=== PATIENT | female | born 1945 | race Caucasian/White ===

== ENCOUNTER → 2023-06-01 09:53 | Outpatient (REF) | payer MEDICARE, OTHER, SELFPAY | LOC: RAD 09:53 | PROVIDERS: ATTENDING PHYSICIAN Internal Medicine | DX: R10.9 Unspecified abdominal pain (principal) | CPT/HCPCS: 76700 ==

== ENCOUNTER → 2023-08-28 13:14 | Outpatient (REF) | payer MEDICARE, OTHER, SELFPAY | LOC: WDC 13:14 | PROVIDERS: ATTENDING PHYSICIAN Internal Medicine | DX: Z12.31 Encounter for screening mammogram for malignant neoplasm of breast (principal) | CPT/HCPCS: 77063; 77067 ==

== ENCOUNTER 2024-01-23 21:19 | Inpatient (IN) | payer MEDICARE, OTHER, SELFPAY ==
[2024-01-23 16:08] VITALS: BMI 37.8
--- NOTE | 2024-01-23 16:34 | ED.GENMED ---
History of Present Illness
General
Chief Complaint: Fall
Source: patient and family
Exam Limitations: none
Time Seen by Provider: 01/23/24 16:08
Nursing documentation reviewed up to this point in time: agreed with
History of Present Illness
History of Present Illness:
Patient is an 78-year-old female who presents to the ER for evaluation via EMS. Patient lives alone and slipped and fell at 3 AM while going to the bathroom. She reports she landed on her knees but was unable to get herself up and has been on the
floor since. Her daughter went to check on her and she was not answering the door and they called 911. Patient reports she has had knee pain since falling also 2 weeks ago and now she complains of worsening left knee pain. She has not eaten or
drank since she has been on the floor.
She reports she slipped and denies any feeling of lightheadedness chest pain or dizziness prior to fall. She denies hitting her head
Pt c/o of chills on exam on arrival.
Daughter present reports she was unable to get patient off the floor she was very weak.
Past History
Past History
ED Past Medical History: HTN, NIDDM and Other (Chronic back pain)
ED Past Surgical History: None
Social History
Tobacco: Non-smoker
Alcohol: None
Drug: None
Living: alone
Review of Systems
Review of Systems
Allergies reviewed?: Yes
Other source history: family
All Other Systems: ROS reviewed and negative except as documented in HPI and ROS
Constitutional: Reports fatigue and chills
EENT: Reports no symptoms
Respiratory: Reports no symptoms; Denies cough
Cardiac: Reports no symptoms
ABD/GI: Reports no symptoms
: Reports no symptoms
Musculoskeletal: Reports other (left knee pain )
Skin: Reports no symptoms
Neurological: Reports no symptoms; Denies dizzy or headache
Psychiatric: Reports no symptoms
Phy Exam
General Physical Exam
General Presentation: no apparent distress
General age: appears stated age
General Skin: warm and dry
General Habitus: elderly
General Mental: alert
General Hydration: dry mucous membranes
Cardiovascular Exam
Cardiovascular Exam: tachycardia
Pulmonary Exam
Pulmonary Exam: lungs clear and no respiratory distress
Neurological Exam
Neurological Exam: alert and oriented x3
Musculoskeletal Exam
Musculoskeletal Exam: full ROM and other (no head injury + mild ecchymosis to left knee mildly swollen )
Skin Exam
Skin Exam: normal color and warm/dry
Psychiatric Exam
Psychiatric Exam: normal mood/affect
Course
Orders/Labs/Results
Orders:
Orders
01/23/24 16:06
EKG [Electrocardiogram (*1)] Urgent
Reason for Study: Other
Other Reason for Exam: fall
EKG- Treatment ONCE
01/23/24 16:09
CBC/With Diff [Complete Blood Count/With Diff] Urgent
01/23/24 16:35
Knee, Left 4 or More Views [CR Knee - Left 4 Or More View*] Urgent
Comment:
Reason For Exam: trauma
01/23/24 16:36
0.9% Sodium Chloride 1000 ml [Nss] 1,000 ml IV BOLUS
01/23/24 16:37
CT Head W/o Iv Contrast Urgent
Comment:
Reason For Exam: trauma
01/23/24 16:38
Lumbar Spine Complete, 4 View [CR Lumbar Spine Comp Min 4 Vw*] Urgent
Comment:
Reason For Exam: trauma
01/23/24 16:48
COVID-19 Antigen Urgent
Source: Nasal Swab
Comprehensive Metabolic Panel Urgent
Creatine Phosphokinase Urgent
UA Reflex to Culture [Urinalysis Reflex To Culture] Urgent
Date Specimen was Collected: 01/23/24
Time Specimen was Collected: 16:47
Urine Microscopic Reflex Cult Urgent
Influenza A+B Rapid Molecular Urgent
JOSEFINA Source: Nasal Swab
Specimen Description:
01/23/24 17:56
Acetaminophen [Tylenol] 650 mg PO NOW STA
01/23/24 18:05
Chest [CR Chest - 2 Views ] Urgent
Comment:
Reason For Exam: fever
01/23/24 19:37
Azithromycin 500 mg/250 ml [Zithromax Infusion] 500 mg in 250 ml IV NOW
01/23/24 19:38
CefTRIAXone [Rocephin] 1,000 mg IV NOW STA
Abnormal Lab Results
01/23/24 01/23/24
16:09 16:48
Abs Immat Gran (auto) 0.1 H 10^3/uL
(0-0.05)
Absolute Neuts (auto) 8.0 H 10^3/uL
(1.4-6.5)
Absolute Lymphs (auto) 0.6 L 10^3/uL
(1.2-3.4)
Absolute Monos (auto) 1.0 H 10^3/uL
(0.1-0.6)
Neutrophils % 83.2 H %
(42.2-75.2)
Lymphocytes % 5.7 L %
(20.5-51.1)
Monocytes % 10.3 H %
(1.7-9.3)
Carbon Dioxide 21 L mmol/L
(22-30)
BUN 34 H mg/dl
(7-17)
Glucose 161 H mg/dl
(70-99)
AST 51 H U/L
(14-36)
Creatine Kinase 590 H U/L
(30-135)
Urine Ketones 2+ A
(Negative)
Urine Bilirubin 1+ A
(Negative)
Urine Bacteria (Reflex) Few A
(Negative)
Urine Albumin (Reflex) 1+ A
(Neg - Trace)
01/23/24 16:09
01/23/24 16:48
Vital Signs
Initial and Last Documented VS:
Initial Vital Signs
Temp Pulse Resp Pulse Ox
99.0 F 113 15 94
01/23/24 16:08 01/23/24 16:08 01/23/24 16:08 01/23/24 16:08
Last Documented Vital Signs
Temp Pulse Resp BP Pulse Ox
101.8 F H 112 24 157/84 90
01/23/24 17:55 01/23/24 19:15 01/23/24 19:15 01/23/24 19:05 01/23/24 19:15
Sourcing Consultant consulted with Physician
Sourcing Consultant consulted with physician?: Yes
Name of Physician Consulted: Laine
MDM/Problems Addressed
Differential Diagnosis Includes:
Not limited mechanical fall dehydration rhabdomyolysis infection knee contusion versus fracture lumbar contusion versus fracture
MDM/Problems Addressed:
78-year-old female presented to the ER for evaluation of fall. Patient describes mechanical fall at 3 AM however has been on the floor since. Daughter reports patient was too weak to get up on her own and EMS was called. Patient denies hitting
her head however CAT scan was done and negative for injury. Patient is not on blood thinners. Patient does complain of feeling fatigued. Patient's main complaint on arrival was feeling very cold. She was found to have a temperature of 101.8 on
arrival. Patient denies any recent URI symptoms or UTI symptoms. Her white count is normal. She is dehydrated on exam clinically and does have an elevated BUN of 34 with a normal creatinine. Patient CPK was found to be 590. Urine does not
appear infected. Chest x-ray questionable for pneumonia lll. Case reviewed with ED physician with weakness elevated CPK dehydration fever questionable pneumonia will admit
Chronic conditions affecting care:
htn, iddm
*Radiology
Radiology exam reviewed: radiology read reviewed
*Pulse Oximetry
Patient hypoxic: no
*EKG
Interpreted by ED Provider?: Yes
Heart Rate: 107
Rate: tachycardiac
Ischemia: non-specific ST changes
*Critical Care Note
Total Time (30-74mins, 75-104mins- exclusive of procedures): Not Applicable
ED Attending Note
-
Portions of this chart may have been created with voice recognition software.� Occasional wrong word or��sound alike� substitutions may have occurred due to the inherent limitations of voice recognition software.
Discharge Plan
Departure
Patient Disposition: Admit
Date of Disposition: 01/23/24
Time of Disposition: 19:37
Admit to: Telemetry
Admit to doctor: hospitalist
Presentation/result/management discussed w/ accepting MD/DO: Hospitalist
Patient with high blood pressure during this ER visit?: Yes
Condition: Fair
Discharge Problem:
Acute dehydration, Fall, Fever, Pneumonia
Prescriptions:
No Action
felodipine 5 mg Tablet Extended Release 24 Hr
10 mg PO DAILY
rosuvastatin [Crestor] 10 mg Tablet
10 mg PO HS
Ozempic 1 mg/dose (2 mg/1.5 mL) Pen Injector
1 mg SC QWEEK
Rx Instructions:
sundays
metformin 500 mg tablet
1,000 mg PO BID
valsartan 160 mg tablet
320 mg PO DAILY
carvedilol 6.25 mg Tablet
6.25 mg PO BID Qty: 90 0RF
Insulin Glargine Lantus [Lantus] 33 UNITS
Subcutaneous Insulin Syringe [Syringe-Insulin] 0 UNIT
As Directed mls/hr SC DAILY
Ordered By: Remi Newell MD
Last Taken: Unknown
pantoprazole [Protonix] 20 mg tablet,delayed release (DR/EC)
20 mg PO DAILY Qty: 30 0RF
tramadol 50 mg tablet
25 mg PO Q6HPRN PRN (Reason: MOD PAIN) Qty: 0 0RF
Patient Comments:
Last filled 03/03/22 #28 x7day supply
Referrals:
Britany Foster MD [Family Provider] -
Interventions
Interventions:
*Risk Screen - Suicide Last Done: 01/23/24 16:08
*General Assessment Last Done: 01/23/24 16:08
*Neglect/Abuse Screening Last Done: 01/23/24 16:08
ED- Fall Risk Assessment Last Done: 01/23/24 16:08
*ED COVID-19 Vaccine History Last Done: 01/23/24 16:08
ED-Musculoskeletal Assessment Last Done: 01/23/24 16:08
ED- Neurological Assessment Last Done: 01/23/24 16:08
ED-Skin Assessment Last Done: 01/23/24 16:08
Discharge Date and Time
Print Language: DANISH
[2024-01-23 16:35] LABS: % Basophils 0.2 % (0-2); % Eosinophils 0.1 % (0-6); % Immature Granulocytes 0.5 % (0-0.5); % Lymphocytes 5.7 % (20.5-51.1); % Monocytes 10.3 % (1.7-9.3); % Neutrophils 83.2 % (42.2-75.2); Absolute Immature Granulocytes 0.1 10^3/uL (0-0.05); Absolute Lymphocytes 0.6 10^3/uL (1.2-3.4); Hemoglobin 14.4 g/dL (12.0-16.0); Mean Corpuscular Hgb 30.9 pg (27.0-31.0); Mean Corpuscular Volume 85.8 fL (81.0-99.0); Mean Platelet Volume 9.5 fL (7.4-10.4); Nucleated Red Blood Cells % 0 %; Platelet Count 299 10^3/uL (130-400); Red Blood Cell Count 4.66 10^6/uL (4.20-5.40); Red Cell Dist. Width 14.2 % (11.5-14.5); White Blood Cell Count 9.6 10^3/uL (4.8-10.8)
[2024-01-23] MEDS: NSS 1000 IV (16:47)
[2024-01-23 17:00] LABS: Urine Albumin 1+ (Neg - Trace); Urine Bilirubin 1+ (Negative); Urine Character Clear (Clear); Urine Color Yellow; Urine Glucose Negative (Negative); Urine Ketone 2+ (Negative); Urine Leukocyte Negative (Negative); Urine Nitrite Negative (Negative); Urine Occult Blood Negative (Negative); Urine Specific Gravity 1.025 (<1.030); Urine Urobilinogen Negative (Neg - 1+)
[2024-01-23 17:10] LABS: Urine Squamous Cell 16-20 /LPF (Few)
[2024-01-23 17:11] LABS: Urine Mucus Moderate; Urine Red Blood Cell 0-2 /HPF (0-2)
[2024-01-23 17:12] LABS: Urine Bacteria Few (Negative); Urine White Cell 0-2 /HPF (0-5)
[2024-01-23 17:19] LABS: ALT (SGPT) 35 U/L (0-35); AST (SGOT) 51 U/L (14-36); Albumin 4.4 g/dl (3.5-5.0); Alkaline Phosphatase 78 U/L (38-126); Blood Urea Nitrogen 34 mg/dl (7-17); Calcium 10.2 mg/dl (8.4-10.2); Carbon Dioxide 21 mmol/L (22-30); Chloride 102 mmol/L (98-107); Creatine Phosphokinase 590 U/L (30-135); Estimated Creatinine Clearance 53 ml/min; Glucose 161 mg/dl (70-99); Potassium 4.6 mmol/L (3.5-5.1); Sodium 138 mmol/L (135-145); Total Bilirubin 1.1 mg/dl (0.2-1.3); eGFR 56.95
[2024-01-23 17:30] LABS: COVID-19 Antigen Negative (Negative)
[2024-01-23] MEDS: TYLENOL 650 MG PO (18:03)
[2024-01-23 19:05] VITALS: BP 157/84
--- NOTE | 2024-01-23 19:45 | HPS.HSE ---
Family Physician
-
Family Physician: Britany Foster
Chief Complaint
-
Fall
History of Present Illness
Patient is a 78-year-old female with past medical history significant for hypertension, type 2 diabetes who came to [place] [facility] for evaluation s/p a fall around 0300 this morning. Patient reports that she fell on her knees when going to the
bathroom and was able to get herself back up. Her daughter stopped to check on her and when patient did not answer she called 911. Patient states she had a fall 2 weeks ago and her knees have been bothersome since then. Patient denies hitting her
head, fever, chills, shortness of breath, chest pain, cough, nausea, vomiting, constipation, diarrhea and any urinary symptoms. She did state that she had urinary symptoms approximately a week ago and primary care ordered Amoxicillin for her, she
has not finished the antibotic at home yet.
Medical History
Past Medical History
Past Medical History: Reports Other
Additional Past Medical History:
Hypertension
Diabetes
hyperlipidemia
GERD
Past Surgical History: Reports Other
Additional Past Surgical History:
D&C
Social History
Tobacco: Non-smoker
Alcohol: None
Drug: None
Personal: Single
Living: Alone
Employment: Retired
Family History
Family History: Not pertinent
Allergies / Home Medications
Allergies reflects when Allergies were last updated in [facility].
Home Medications with original date entered in [facility]
Allergy/Medication List:
Allergies
Allergy/AdvReac Type Severity Reaction Status Date / Time
No Known Allergies Allergy Verified 03/24/22 07:44
Home Medications
rosuvastatin 10 mg tablet (Crestor) 10 mg PO HS High cholesterol 03/24/22
metformin 500 mg tablet 1,000 mg PO BID Diabetes 03/26/22
valsartan 160 mg tablet 320 mg PO DAILY Blood pressure 03/26/22
amoxicillin 500 mg-potassium clavulanate 125 mg tablet 1 tab PO Q12 01/23/24
felodipine 10 mg tablet,extended release 24 hr 10 mg PO DAILY 01/23/24
insulin glargine U-300 conc 300 unit/mL (3 mL) subcutaneous pen (Toujeo Max U-300 SoloStar) 0 unit SC .SLIDING SCALE DAILY 01/23/24
methotrexate sodium (PF) 25 mg/mL injection solution 25 mg IM SA 01/23/24
pantoprazole 40 mg tablet,delayed release 40 mg PO DAILY 01/23/24
semaglutide 2 mg/dose (8 mg/3 mL) subcutaneous pen injector (Ozempic) 2 mg SC ARNDT 01/23/24
Review of Systems
-
History Source: Patient
Constitutional: Reports Fever and Chills
EENT: Reports No Symptoms
Respiratory: Reports No Symptoms
Cardiac: Reports No Symptoms
Abdomen/GI: Reports No Symptoms
: Reports No Symptoms
Musculoskeletal: Reports Joint Pain (bilateral knee pain)
Skin: Reports No Symptoms
Neurological: Reports No Symptoms
Endocrine: Reports No Symptoms
Hematologic/Lymphatic: Reports No Symptoms
Psych: Reports No Symptoms
Physical Exam
Vital Signs
Vital Signs
Temp Pulse Resp BP Pulse Ox
101.8 F H 112 24 157/84 90
01/23/24 17:55 01/23/24 19:15 01/23/24 19:15 01/23/24 19:05 01/23/24 19:15
Physical Exam
General: Well Developed, Well Nourished, No Apparent Distress, Comfortable, Conversant, Fever and Chills
HEENT: NormoCephalic, Moist mucous membranes, Atraumatic, PERRLA, Nose Appears Normal and Ears Appear Normal
Respiratory: Clear
Cardiac: S1/S2 and Tachycardia; No Murmur, Rub or Gallop
Breast: Deferred by me
GI: Soft, Non Tender, Non Distended and Normal Bowel Sounds; No Organomegaly
Rectal: Deferred by Provider
Genito-urinary: Deferred by me
Musculoskeletal: No Clubbing, No Cyanosis and No Edema
Skin: Warm, Dry and IV/Catheter Site; No Rash
Neuro: Awake, Alert, AO x 3 and Nonfocal/grossly intact
Psych: Calm and Intact Judgment/Insight
Laboratory Results
-
01/23/24 16:09
01/23/24 16:48
Laboratory Results
Total Bilirubin 1.1 mg/dl (0.2-1.3) 01/23/24 16:48
AST 51 U/L (14-36) H 01/23/24 16:48
ALT 35 U/L (0-35) 01/23/24 16:48
Alkaline Phosphatase 78 U/L (38-126) 01/23/24 16:48
Data Reviewed
-
Diagnostic Radiology: Report Reviewed by me (CXR: Left basilar atelectasis and/or pneumonia. Lumbar:Moderate multilevel degenerative changes of the lumbar spine without evidence for acute fracture. Knee; No acute fracture or dislocation. Moderate
tricompartmental osteoarthritis. Soft tissues are grossly unremarkable. No significant joint effus)
CT Scan: Report Reviewed by me (Head: No acute intracranial abnormality noted.)
Lab Data: Labs Reviewed by me (CK 590)
Impression/Plan
-
IMPRESSION/PLAN:
#Sepsis
#Pneumonia
- Admit to M/S
- Procal pending
- IV Azithromycin, ceftriaxone
- IVF NSS 60cc/hr
#Diabetes
- hold metformin
- hold Ozempic
- Accucheck AC & HS with SSI
#Hyperlipidemia
- continue rosuvastatin
#Hypertension
- continue valsartan & felodipine
#GERD
- continue pantoprazole
Full Code
DVT Px: Sq Lovenox
[2024-01-23] MEDS: ROCEPHIN 1000 MG IV (19:57)
[2024-01-23 20:00] VITALS: BP 136/79
[2024-01-23] MEDS: ZITHROMAX INFUSION 250 IV (20:04)
--- NOTE | 2024-01-23 20:07 | W.PN.UPDATE ---
Update Note
Progress Note Update
This note serves as an addendum to the H&P by milieu counselor KAMI Yecenia Diaz
HPI
78F from Home Obese HX NIDDM, HTN, NIDDM , , chronic back pain Bi[facility] EMS seen at ER:
- report Fall around 3 am and has been on the floor due to too weak to get up
- denied hitting head: NEG HCT
- Fever 101.8 with chills on arriaval: NEG Covid. NEG Flu A& B
PHX: as above
Reviewed VS: T 101.8 RR 24 HR 112 BP 157/84
PE
Gen: Class II obesity ( BMI 38 ) Not toxic looking
HEENT: anicteric
Neck: supple, no JVD
Lungs: symmetric AE. No wheeze. No rales
Cor: RRR S1 S2
Abdomen: soft NT NG NRT
ACID EXTRACTOR: AAO3. NFND
MS: No edema
Psych:Normal mood and affect
Data
WCC 9.6
CO2 21
BUN 34
Cr 1.0
eGFR 56
AST 51 CPK 590
NEG Covid
NEG UA
CXR: Left basilar atelectasis and/or pneumonia.
Lx spine XR: Moderate multilevel degenerative changes of the lumbar spine without evidence for acute fracture.
Knee XR:
No acute fracture or dislocation.
Moderate tricompartmental osteoarthritis.
Soft tissues are grossly unremarkable. No significant joint effusion
HCT: No acute intracranial abnormality noted.
Last hospitalist admission: DATE OF ADMISSION: 03/25/2022 - DATE OF DISCHARGE: 03/29/2022
DDx : fall with right ankle sprain
ASSESSMENT & PLAN
Sepsis due to presumed Lt basilar PNA
Fall due to weakness with general debility due to sepsis vs early TME
- No traumatic injury and Fx
- NEG HCT
- check PCT
- IV NS 60/H
- Agree with IV CFTZ and Azithromycin
- O2 PRN to keep POx > 94
- PT/OT
HX chronic back pain
NEG XR for acute Fxs
- cont tramadol
- PT/OT
Essential HTN
- c/w Felodipine and Valsartan
DMT2
- Hold metformin
- Hold Ozempic while acute infection
- add ISS low
- ADA 2000 kacie
HLD
- c/w Crestor HS
Class II Obesity due to excess calorie consumption- BMI 37-38
DVT Px: LMWH
Full code
IP TLM
[2024-01-23 21:00] VITALS: BP 115/65
[2024-01-23 22:00] VITALS: BP 125/83
[2024-01-23 22:30] VITALS: BP 112/89
[2024-01-23 23:01] VITALS: BP 142/79
[2024-01-23 23:04] LABS: Procalcitonin 0.58 ng/ml (0.0-0.25)
[2024-01-23 23:33] LABS: Glucose - Point of Care 133 mg/dl (70-99)
[2024-01-24] VITALS (13 sets, daily range): BP systolic 104–140; BP diastolic 59–91; PULSE 103–122; O2SAT 90–92; BMI 39.9
[2024-01-24] MEDS: CRESTOR 10 MG PO ×2 (00:19→21:34)
[2024-01-24] MEDS: ULTRAM 25 MG PO (00:19)
[2024-01-24] MEDS: NSS 1000 IV ×2 (00:20→17:00)
[2024-01-24] MEDS: TYLENOL 650 MG PO ×2 (05:45→11:36)
[2024-01-24 06:26] LABS: ALT (SGPT) 31 U/L (0-35); AST (SGOT) 42 U/L (14-36); Albumin 3.5 g/dl (3.5-5.0); Alkaline Phosphatase 80 U/L (38-126); Blood Urea Nitrogen 30 mg/dl (7-17); Calcium 9.5 mg/dl (8.4-10.2); Carbon Dioxide 21 mmol/L (22-30); Chloride 105 mmol/L (98-107); Estimated Creatinine Clearance 67 ml/min; Glucose 162 mg/dl (70-99); Potassium 4.2 mmol/L (3.5-5.1); Sodium 138 mmol/L (135-145); Total Bilirubin 1.1 mg/dl (0.2-1.3); eGFR > 60.00
[2024-01-24 06:28] LABS: Hematocrit 36.5 % (37.0-47.0); Hemoglobin 12.9 g/dL (12.0-16.0); Mean Corp Hgb Conc. 35.3 g/dL (33.0-37.0); Mean Corpuscular Hgb 31.9 pg (27.0-31.0); Mean Corpuscular Volume 90.3 fL (81.0-99.0); Mean Platelet Volume 9.5 fL (7.4-10.4); Platelet Count 271 10^3/uL (130-400); Red Blood Cell Count 4.04 10^6/uL (4.20-5.40)
[2024-01-24] MEDS: DIOVAN 320 MG PO (08:02)
[2024-01-24] MEDS: PROTONIX 40 MG PO (08:02)
[2024-01-24] MEDS: PLENDIL EXTENDED RELEASE 10 MG PO (08:03)
[2024-01-24 08:53] LABS: Glycohemoglobin (HgbA1c) 7.3 % (4.0-5.6)
[2024-01-24 09:10] LABS: Glucose - Point of Care 133 mg/dl (70-99)
[2024-01-24] MEDS: NOVOLOG FLEXPEN-LOW RESISTANCE SC ×2 (09:10→13:27)
--- NOTE | 2024-01-24 13:01 | W.PN.HOSP.TC ---
Today's Communication/Plan
-
X-ray right knee
Blood cultures
Doppler ultrasound lower extremities
PT/OT
Hold further antibiotics
Assessment / Plan
Assessment / Plan
Gen-AAOx3, NAD, obese
HEENT-NC, AT, anicteric, clear oral mm
Neck-supple
CV-reg, no M, +S1/S2
Lungs-clear B/L
Abd-soft, NT, ND
Ext-no edema
Musculoskeletal-no cyanosis, clubbing, somewhat limited range of motion of both knees due to pain, limited range of motion of shoulders due to pain
Skin-warm and dry
Neuro-grossly non-focal
Psych-calm, cooperative
Sepsis -no obvious trigger. Clinically does not have pneumonia, no evidence of UTI. Suspect abnormal chest x-ray is atelectasis rather than pneumonia. Not hypoxic. No pulmonary symptoms, no urinary symptoms. Hold further antibiotics. Send
blood cultures. Unfortunately, already received antibiotics.
Patient was on Augmentin for 1 week prior to admission for UTI reportedly, although today she tells me she never had UTI symptoms. She believes the urinalysis was checked by the PCP for routine reasons.
Check Doppler ultrasound lower extremities, rule out DVT as we have no clear explanation for the fever.
Bilateral knee pain -baseline has osteoarthritis, rheumatoid arthritis. Is on chronic methotrexate. Knee pain worsened when she fell 2 weeks ago landing on both knees. Admission x-ray of the left knee was negative for fracture, will order right
knee x-rays.
Ambulatory dysfunction -mostly due to significant knee pain, arthritis, debility and deconditioning contributing. Continue PT/OT.
Mild traumatic rhabdomyolysis -CPK 590 on admission. Will recheck.
Rheumatoid arthritis -on weekly methotrexate.
DM2 without hyperglycemia -hemoglobin A1c 7.3%. Glucose 162 this morning. At home she is on metformin, semaglutide, glargine insulin.
Essential hypertension - controlled.
Hyperlipidemia - Crestor.
Obesity due to excess calories
Dispo -will need SNF on discharge when medically stable.
Daughter updated on the phone.
Anticipated Discharge: 24 - 48 hours
Subjective/Interval History
-
Date of Service: January 24, 2024
Patient seen and examined. Complaining of bilateral knee pain, trouble ambulating as a result. Denies cough or shortness of breath.
Objective Data
-
Labs:
Laboratory Results
01/24/24
06:00
WBC 8.0
Hgb 12.9
Hct 36.5 L
Plt Count 271
Sodium 138
Potassium 4.2
Chloride 105
Carbon Dioxide 21 L
BUN 30 H
Creatinine 0.8
Glucose 162 H
Calcium 9.5
Total Bilirubin 1.1
AST 42 H
ALT 31
Alkaline Phosphatase 80
Vital Signs:
Vital Signs
Temp Pulse Resp BP Pulse Ox
100.5 F H 88 12 104/59 92
01/24/24 05:40 01/24/24 12:45 01/24/24 12:45 01/24/24 12:00 01/24/24 12:45
Review of Systems
-
History Source: Patient
All other systems: Reviewed and negative
--- NOTE | 2024-01-24 13:04 | CM ---
Addendum entered by Coretta Aggarwal 01/24/24 13:19:
Edit to last note: Patient declining STR, even though she now has to utilize a walker and did not have to before.
Original Note:
CM reviewed chart. PT discussed recommendations with CM. CM introduced self and role. Patient lived alone in a 1 story house. She has 3 steps to enter into the home. She drives, she was independent, until her fall. She is retired. She denies any
+SDOHs. She has active PCP and pharmacy. She owns a walker, cane and wheelchair.
Patient confirmed what PT had shared with CM intially. She said that she does want to go to STR. CM explained that patient was admitted and PT would continue to work with her until she was medically cleared and d/c'd. CM explinaed patient may or may
not improved with PT while in the hospital.
ANTICIPATED DISCHARGE PLAN: HHC vs. STR., pending PT/OT's recommendations and when patient is medically clear.
[2024-01-24 13:28] LABS: Glucose - Point of Care 141 mg/dl (70-99)
[2024-01-24 14:59] LABS: TSH 1.44 uIU/ml (0.47-4.68)
[2024-01-24 16:32] LABS: Glucose - Point of Care 218 mg/dl (70-99)
[2024-01-24] MEDS: LOVENOX 40 MG SC (17:01)
[2024-01-24] MEDS: NOVOLOG FLEXPEN-LOW RESISTANCE 2 UNITS SC (17:01)
[2024-01-24 20:59] LABS: Glucose - Point of Care 144 mg/dl (70-99)
[2024-01-24] MEDS: DESENEX/MITRAZOL/ZEASORB 1 APPLIC TOPICAL (21:33)
[2024-01-24] MEDS: MOTRIN 400 MG PO (21:33)
[2024-01-25 03:41] VITALS: BP 132/78
[2024-01-25 07:40] VITALS: BP 123/78
[2024-01-25 07:50] LABS: ALT (SGPT) 25 U/L (0-35); AST (SGOT) 31 U/L (14-36); Albumin 3.2 g/dl (3.5-5.0); Alkaline Phosphatase 70 U/L (38-126); Blood Urea Nitrogen 30 mg/dl (7-17); Calcium 9.2 mg/dl (8.4-10.2); Carbon Dioxide 20 mmol/L (22-30); Chloride 105 mmol/L (98-107); Creatine Phosphokinase 184 U/L (30-135); Estimated Creatinine Clearance 69 ml/min; Glucose 125 mg/dl (70-99); Potassium 4.1 mmol/L (3.5-5.1); Sodium 137 mmol/L (135-145); Total Bilirubin 0.8 mg/dl (0.2-1.3); Total Protein 5.6 g/dl (6.3-8.2); eGFR > 60.00
[2024-01-25 08:29] LABS: Glucose - Point of Care 136 mg/dl (70-99)
[2024-01-25] MEDS: NOVOLOG FLEXPEN-LOW RESISTANCE SC ×2 (08:56→18:56)
[2024-01-25] MEDS: DIOVAN 320 MG PO (08:59)
[2024-01-25] MEDS: PROTONIX 40 MG PO (08:59)
[2024-01-25] MEDS: DESENEX/MITRAZOL/ZEASORB 1 APPLIC TOPICAL ×2 (08:59→21:06)
[2024-01-25] MEDS: PLENDIL EXTENDED RELEASE 10 MG PO (10:17)
--- NOTE | 2024-01-25 10:36 | W.PN.HOSP.TC ---
Addendum entered and electronically signed by Jules Stanton DO 01/25/24 16:17:
Patient complaining of right lateral hip pain, chills. No fever recorded by nursing.
I went back in the room to reexamine the patient. She is tender over the right lateral hip consistent with trochanteric bursitis. She says that she has had this pain on and off for the past year at least. No groin pain on exam making hip
arthritis or pathology unlikely.
She is having chills but somewhat better after ibuprofen. EKG reviewed, sinus tachycardia.
Will check CBC now, recheck procalcitonin.
Blood cultures that were drawn earlier are still pending.
Addendum entered and electronically signed by Jules Stanton DO 01/25/24 13:01:
SIRS - no obvious infection found so far.
Original Note:
Today's Communication/Plan
-
MRI of both knees
Assessment / Plan
Assessment / Plan
Gen-AAOx3, NAD, obese
HEENT-NC, AT, anicteric, clear oral mm
Neck-supple
CV-reg, no M, +S1/S2
Lungs-clear B/L
Abd-soft, NT, ND
Ext-no edema
Musculoskeletal-no cyanosis, clubbing, somewhat limited range of motion of both knees due to pain, limited range of motion of shoulders due to pain
Skin-warm and dry
Neuro-grossly non-focal
Psych-calm, cooperative
Sepsis -no obvious trigger. Clinically does not have pneumonia, no evidence of UTI. Suspect abnormal chest x-ray is atelectasis rather than pneumonia. Not hypoxic. No pulmonary symptoms, no urinary symptoms. Hold further antibiotics. Send
blood cultures. Unfortunately, already received antibiotics.
Patient was on Augmentin for 1 week prior to admission for UTI reportedly, although today she tells me she never had UTI symptoms. She believes the urinalysis was checked by the PCP for routine reasons.
Check Doppler ultrasound lower extremities, rule out DVT as we have no clear explanation for the fever.
Bilateral knee pain -baseline has osteoarthritis, rheumatoid arthritis. Is on chronic methotrexate. Knee pain worsened when she fell 2 weeks ago landing on both knees. Admission x-ray of the left knee was negative for fracture, will order right
knee x-rays.
Obtain MRI of both knees to rule out tibial plateau fracture versus other pathology explaining her significant pain.
Ambulatory dysfunction -mostly due to significant knee pain, arthritis, debility and deconditioning contributing. Continue PT/OT.
Mild traumatic rhabdomyolysis -CPK trending down.
Rheumatoid arthritis -on weekly methotrexate.
DM2 without hyperglycemia -hemoglobin A1c 7.3%. Glucose 125 this morning. At home she is on metformin, semaglutide, glargine insulin.
Essential hypertension - controlled.
Hyperlipidemia - Crestor.
Obesity due to excess calories
Dispo -will need SNF on discharge when medically stable.
Anticipated Discharge: Within 24 hours
Subjective/Interval History
-
Date of Service: January 25, 2024
Patient seen and examined. Still complaining of bilateral knee pain. Able to ambulate with walker.
Objective Data
-
Labs:
Laboratory Results
01/25/24
06:45
Sodium 137
Potassium 4.1
Chloride 105
Carbon Dioxide 20 L
BUN 30 H
Creatinine 0.8
Glucose 125 H
Calcium 9.2
Total Bilirubin 0.8
AST 31
ALT 25
Alkaline Phosphatase 70
Vital Signs:
Vital Signs
Temp Pulse Resp BP Pulse Ox
97.6 F 78 18 123/78 98
01/25/24 07:40 01/25/24 07:40 01/25/24 07:40 01/25/24 08:59 01/25/24 07:40
Review of Systems
-
History Source: Patient
All other systems: Reviewed and negative
[2024-01-25 11:45] VITALS: BP 132/69
[2024-01-25 12:01] LABS: Glucose - Point of Care 190 mg/dl (70-99)
--- NOTE | 2024-01-25 12:42 | PN.CDI ---
CDI
- -
CDI:
Physician Documentation Request
Admit Date: 01/23/24 21:19
Dear Doctor Romy,
Progress notes states 'sepsis - no obvious trigger, Clinically does not have pneumonia, no evidence of UTI.... hold further antibiotics'
Please clarify which most accurately describes the patient:
Sepsis
SIRS due to a non-infectious source
Other
Use of terms such as suspected, likely, concern for, or probable (associated with a specific diagnosis that is being evaluated, monitored, or treated as if it exists) are acceptable and can be coded in the inpatient setting, when documented at the
time of discharge.
Thank you,
Nereida Carias RN, BSN
CDI Specialist
tiger text
Please use your independent medical judgment in providing your response.
[2024-01-25] MEDS: NOVOLOG FLEXPEN-LOW RESISTANCE 1 UNITS SC (13:05)
--- NOTE | 2024-01-25 13:49 | CM ---
Addendum entered by Shira Tamayo RN 01/25/24 17:07:
[facility]
report [phone]
fax [phone]
Contact at [facility] Jasmine [phone]
Addendum entered by Shira Tamayo RN 01/25/24 16:00:
spoke with Jasmine at if pt afebrile tomorrow they can accept.
Spoke with reji Britton she is in agreement with pt going to [facility] tomorrow.
Please contact Jasmine ziegler at [phone] for report and fax number .
[facility]
Original Note:
PT OT evals recommend SNF.
Spoke with pt in room .
She agreed offered choice of SNF . She requested [facility].
Referral placed in care port.
Will follow up with call if no response.
PLAN To SNF after located
--- NOTE | 2024-01-25 14:42 | PTCARENOTE ---
contacting provider r/t complaints of severe right hip and right lateral neck pain. pt moaning and shaking in the bed. afebrile. pressures and HR stable. pt repoorts pain is 12/10 and requesting Motrin
[2024-01-25] MEDS: MOTRIN 800 MG PO (14:54)
[2024-01-25 15:25] VITALS: BP 118/54
[2024-01-25] MEDS: TORADOL 15 MG IV ×2 (15:45→22:33)
[2024-01-25] MEDS: PERCOCET 5/325 1 TABLET PO (16:11)
[2024-01-25 16:43] LABS: % Basophils 0.3 % (0-2); % Eosinophils 4.1 % (0-6); % Immature Granulocytes 0.3 % (0-0.5); % Lymphocytes 18.4 % (20.5-51.1); % Monocytes 8.3 % (1.7-9.3); % Neutrophils 68.6 % (42.2-75.2); Absolute Eosinophils 0.3 10^3/uL (0-0.7); Absolute Lymphocytes 1.1 10^3/uL (1.2-3.4); Absolute Monocytes 0.5 10^3/uL (0.1-0.6); Absolute Neutrophils 4.2 10^3/uL (1.4-6.5); Hematocrit 34.6 % (37.0-47.0); Hemoglobin 12.1 g/dL (12.0-16.0); Mean Corpuscular Hgb 30.3 pg (27.0-31.0); Mean Corpuscular Volume 86.5 fL (81.0-99.0); Mean Platelet Volume 9.1 fL (7.4-10.4); Nucleated Red Blood Cells % 0 %; Platelet Count 274 10^3/uL (130-400); Red Cell Dist. Width 13.6 % (11.5-14.5); White Blood Cell Count 6.1 10^3/uL (4.8-10.8)
[2024-01-25 17:51] LABS: Glucose - Point of Care 142 mg/dl (70-99)
[2024-01-25 19:20] VITALS: BP 144/73
[2024-01-25] MEDS: LOVENOX 40 MG SC (19:28)
[2024-01-25] MEDS: CRESTOR 10 MG PO (21:08)
[2024-01-25 22:36] LABS: Glucose - Point of Care 154 mg/dl (70-99)
[2024-01-25 23:34] VITALS: BP 140/70
[2024-01-26 03:30] VITALS: BP 138/74
[2024-01-26 07:16] LABS: % Basophils 0.8 % (0-2); % Eosinophils 5.3 % (0-6); % Immature Granulocytes 0.5 % (0-0.5); % Lymphocytes 20.9 % (20.5-51.1); % Monocytes 11.6 % (1.7-9.3); % Neutrophils 60.9 % (42.2-75.2); Absolute Basophils 0.1 10^3/uL (0-0.2); Absolute Eosinophils 0.4 10^3/uL (0-0.7); Absolute Lymphocytes 1.4 10^3/uL (1.2-3.4); Absolute Monocytes 0.8 10^3/uL (0.1-0.6); Hematocrit 33.2 % (37.0-47.0); Hemoglobin 11.5 g/dL (12.0-16.0); Mean Corp Hgb Conc. 34.6 g/dL (33.0-37.0); Mean Corpuscular Hgb 30.4 pg (27.0-31.0); Mean Corpuscular Volume 87.8 fL (81.0-99.0); Mean Platelet Volume 9.5 fL (7.4-10.4); Nucleated Red Blood Cells % 0 %; Platelet Count 275 10^3/uL (130-400); Red Blood Cell Count 3.78 10^6/uL (4.20-5.40); Red Cell Dist. Width 13.9 % (11.5-14.5); White Blood Cell Count 6.6 10^3/uL (4.8-10.8)
[2024-01-26 07:52] VITALS: BP 130/67
[2024-01-26 07:52] LABS: ALT (SGPT) 25 U/L (0-35); AST (SGOT) 31 U/L (14-36); Albumin 3.4 g/dl (3.5-5.0); Alkaline Phosphatase 71 U/L (38-126); Blood Urea Nitrogen 26 mg/dl (7-17); Calcium 9.5 mg/dl (8.4-10.2); Carbon Dioxide 21 mmol/L (22-30); Chloride 106 mmol/L (98-107); Estimated Creatinine Clearance 69 ml/min; Glucose 145 mg/dl (70-99); Potassium 4.2 mmol/L (3.5-5.1); Sodium 138 mmol/L (135-145); Total Bilirubin 0.6 mg/dl (0.2-1.3); Total Protein 5.9 g/dl (6.3-8.2); eGFR > 60.00
[2024-01-26 08:16] LABS: Glucose - Point of Care 147 mg/dl (70-99)
[2024-01-26] MEDS: NOVOLOG FLEXPEN-LOW RESISTANCE SC ×3 (09:18→17:06)
[2024-01-26] MEDS: PROTONIX 40 MG PO (10:04)
[2024-01-26] MEDS: PLENDIL EXTENDED RELEASE 10 MG PO (10:04)
[2024-01-26] MEDS: DESENEX/MITRAZOL/ZEASORB 1 APPLIC TOPICAL ×2 (10:05→21:21)
[2024-01-26 11:25] VITALS: BP 146/75
--- NOTE | 2024-01-26 11:32 | W.PN.HOSP.TC ---
Today's Communication/Plan
-
Ibuprofen [id number]
Await MRI of knees
Assessment / Plan
Assessment / Plan
Gen-AAOx3, NAD, obese
HEENT-NC, AT, anicteric, clear oral mm
Neck-supple
CV-reg, no M, +S1/S2
Lungs-clear B/L
Abd-soft, NT, ND
Ext-no edema
Musculoskeletal-no cyanosis, clubbing, somewhat limited range of motion of both knees due to pain, limited range of motion of shoulders due to pain, tender over right greater trochanter
Skin-warm and dry
Neuro-grossly non-focal
Psych-calm, cooperative
SIRS -no obvious trigger. Clinically does not have pneumonia, no evidence of UTI. Suspect abnormal chest x-ray is atelectasis rather than pneumonia. Not hypoxic. No pulmonary symptoms, no urinary symptoms. Hold further antibiotics. Blood
cultures negative so far.
Patient was on Augmentin for 1 week prior to admission for UTI reportedly, although today she tells me she never had UTI symptoms. She believes the urinalysis was checked by the PCP for routine reasons.
Lower extremity Doppler ultrasound negative for DVT.
Mild procalcitonin elevation noted but trending down. Has remained afebrile. WBC count normal.
Bilateral knee pain -baseline has osteoarthritis, rheumatoid arthritis. Is on chronic methotrexate. Knee pain worsened when she fell 2 weeks ago landing on both knees. Admission x-ray of the left knee was negative for fracture, will order right
knee x-rays.
Obtain MRI of both knees to rule out tibial plateau fracture versus other pathology explaining her significant pain.
Right greater trochanteric bursitis -suspect chronic. Will change NSAIDs to ibuprofen 800 mg 3 times daily [id number].
Ambulatory dysfunction -mostly due to significant knee pain, arthritis, debility and deconditioning contributing. Continue PT/OT.
Mild traumatic rhabdomyolysis -CPK trending down.
Rheumatoid arthritis -on weekly methotrexate.
DM2 without hyperglycemia -hemoglobin A1c 7.3%. Glucose 145 this morning. At home she is on metformin, semaglutide, glargine insulin.
Essential hypertension - controlled.
Hyperlipidemia - Crestor.
Obesity due to excess calories
Dispo -will need SNF on discharge when medically stable.
Anticipated Discharge: 24 - 48 hours
Subjective/Interval History
-
Date of Service: January 26, 2024
Patient seen and examined. Complaining of 8 out of 10 knee and right hip pain.
Objective Data
-
Labs:
Laboratory Results
01/26/24
05:58
WBC 6.6
Hgb 11.5 L
Hct 33.2 L
Plt Count 275
Sodium 138
Potassium 4.2
Chloride 106
Carbon Dioxide 21 L
BUN 26 H
Creatinine 0.8
Glucose 145 H
Calcium 9.5
Total Bilirubin 0.6
AST 31
ALT 25
Alkaline Phosphatase 71
Vital Signs:
Vital Signs
Temp Pulse Resp BP Pulse Ox
97.9 F 78 16 146/75 98
01/26/24 11:25 01/26/24 11:25 01/26/24 11:25 01/26/24 11:25 01/26/24 11:25
I&O
01/25/24 01/26/24 01/27/24
06:59 06:59 05:59
Intake Total 500 / 500
Balance 500 / 500
Review of Systems
-
History Source: Patient
All other systems: Reviewed and negative
[2024-01-26 11:46] LABS: Glucose - Point of Care 145 mg/dl (70-99)
[2024-01-26] MEDS: DIOVAN 320 MG PO (12:01)
[2024-01-26] MEDS: MOTRIN 800 MG PO ×3 (12:01→21:22)
[2024-01-26] MEDS: PERCOCET 5/325 1 TABLET PO (13:30)
[2024-01-26 15:57] VITALS: BP 144/66
[2024-01-26] MEDS: LOVENOX 40 MG SC (17:02)
[2024-01-26 17:07] LABS: Glucose - Point of Care 145 mg/dl (70-99)
[2024-01-26] MEDS: CRESTOR 10 MG PO (21:22)
[2024-01-26 21:37] LABS: Glucose - Point of Care 150 mg/dl (70-99)
[2024-01-26 23:40] VITALS: BP 143/48
[2024-01-27 07:40] VITALS: BP 139/80
[2024-01-27] MEDS: MOTRIN 800 MG PO (08:11)
[2024-01-27] MEDS: PROTONIX 40 MG PO (08:11)
[2024-01-27] MEDS: DIOVAN 320 MG PO (08:11)
[2024-01-27] MEDS: PLENDIL EXTENDED RELEASE 10 MG PO (08:12)
[2024-01-27] MEDS: PERCOCET 5/325 1 TABLET PO (08:12)
[2024-01-27] MEDS: NOVOLOG FLEXPEN-LOW RESISTANCE SC ×3 (08:19→17:23)
[2024-01-27] MEDS: DESENEX/MITRAZOL/ZEASORB 1 APPLIC TOPICAL ×2 (08:19→21:14)
[2024-01-27 08:24] LABS: Glucose - Point of Care 126 mg/dl (70-99)
[2024-01-27] MEDS: ATIVAN 0.5 MG PO (08:33)
--- NOTE | 2024-01-27 11:15 | W.PN.HOSP.TC ---
Addendum entered and electronically signed by Jules Stanton DO 01/27/24 12:48:
Left knee MRI without occult fracture, does show anterior cruciate ligament degeneration and age-indeterminate partial tear. Severe degenerative tear of the medial meniscus. Advanced arthritis. Bursitis noted.
Right knee MRI without occult fracture, does show medial meniscus tear, advanced arthritis, trace joint effusion.
Findings discussed with patient. Continue PT/OT and analgesics. Continue anti-inflammatory medications.
Plan will be to go to rehab.
Original Note:
Today's Communication/Plan
-
Stop ibuprofen
IV Toradol [id number]
Follow-up MRI report
Assessment / Plan
Assessment / Plan
Gen-AAOx3, NAD, obese
HEENT-NC, AT, anicteric, clear oral mm
Neck-supple
CV-reg, no M, +S1/S2
Lungs-clear B/L
Abd-soft, NT, ND
Ext-no edema
Musculoskeletal-no cyanosis, clubbing, somewhat limited range of motion of both knees due to pain, limited range of motion of shoulders due to pain, tender over right greater trochanter
Skin-warm and dry
Neuro-grossly non-focal
Psych-calm, cooperative
SIRS -no obvious trigger. Clinically does not have pneumonia, no evidence of UTI. Suspect abnormal chest x-ray is atelectasis rather than pneumonia. Not hypoxic. No pulmonary symptoms, no urinary symptoms. Hold further antibiotics. Blood
cultures negative so far.
Patient was on Augmentin for 1 week prior to admission for UTI reportedly, although today she tells me she never had UTI symptoms. She believes the urinalysis was checked by the PCP for routine reasons.
Lower extremity Doppler ultrasound negative for DVT.
Mild procalcitonin elevation noted but trending down. Has remained afebrile. WBC count normal.
Bilateral knee pain -baseline has osteoarthritis, rheumatoid arthritis. Is on chronic methotrexate. Knee pain worsened when she fell 2 weeks ago landing on both knees. Admission x-ray of the left knee was negative for fracture, will order right
knee x-rays.
MRI of both knees completed, report pending.
Right greater trochanteric pain syndrome - suspect acute on chronic. Will change NSAIDs to Toradol IV [id number]. She states ibuprofen 800 mg is not helping.
Ambulatory dysfunction -mostly due to significant knee pain, arthritis, debility and deconditioning contributing. Continue PT/OT.
Mild traumatic rhabdomyolysis -CPK trending down.
Rheumatoid arthritis -on weekly methotrexate.
DM2 without hyperglycemia -hemoglobin A1c 7.3%. Glucose 126 this morning. At home she is on metformin, semaglutide, glargine insulin.
Essential hypertension - controlled.
Hyperlipidemia - Crestor.
Obesity due to excess calories
Dispo -will need SNF on discharge when medically stable.
Updated daughter on the phone.
Anticipated Discharge: Within 24 hours
Subjective/Interval History
-
Date of Service: January 27, 2024
Patient seen and examined. Complaining of ongoing knee pain.
Objective Data
-
Vital Signs:
Vital Signs
Temp Pulse Resp BP Pulse Ox
97.7 F 76 17 139/80 96
01/27/24 07:40 01/27/24 07:40 01/27/24 07:40 01/27/24 07:40 01/27/24 07:40
I&O
01/26/24 01/27/24 01/28/24
07:59 06:59 06:59
Intake Total
Balance
Review of Systems
-
History Source: Patient
All other systems: Reviewed and negative
[2024-01-27 11:46] LABS: Glucose - Point of Care 121 mg/dl (70-99)
[2024-01-27] MEDS: TORADOL 15 MG IV ×3 (11:58→23:32)
[2024-01-27 15:45] VITALS: BP 111/62
[2024-01-27 17:17] LABS: Glucose - Point of Care 105 mg/dl (70-99)
[2024-01-27] MEDS: LOVENOX 40 MG SC (17:17)
[2024-01-27] MEDS: CRESTOR 10 MG PO (21:15)
[2024-01-27 22:02] LABS: Glucose - Point of Care 156 mg/dl (70-99)
[2024-01-27 23:58] VITALS: BP 112/46
[2024-01-28] MEDS: TORADOL 15 MG IV ×2 (06:06→12:03)
[2024-01-28 07:31] VITALS: BP 132/73
[2024-01-28] MEDS: PLENDIL EXTENDED RELEASE 10 MG PO (07:31)
[2024-01-28] MEDS: DIOVAN 320 MG PO (07:31)
[2024-01-28] MEDS: PROTONIX 40 MG PO (07:32)
[2024-01-28 07:43] LABS: Glucose - Point of Care 126 mg/dl (70-99)
[2024-01-28] MEDS: NOVOLOG FLEXPEN-LOW RESISTANCE SC (07:45)
[2024-01-28] MEDS: DESENEX/MITRAZOL/ZEASORB 1 APPLIC TOPICAL (07:51)
[2024-01-28 11:46] LABS: Glucose - Point of Care 158 mg/dl (70-99)
--- NOTE | 2024-01-28 11:47 | W.PN.HOSP.TC ---
Addendum entered and electronically signed by Blayne Delarosa MD 01/28/24 13:57:
Time of discharge 37 minutes
Original Note:
Today's Communication/Plan
-
Monitor vital signs
see plan
Pain control
Discharge pending placement, manager of case management aware
Assessment / Plan
Assessment / Plan
Gen-AAOx3, NAD, obese
HEENT-NC, AT, anicteric, clear oral mm
Neck-supple
CV-reg, no M, +S1/S2
Lungs-clear B/L
Abd-soft, NT, ND
Ext-no edema
Musculoskeletal-no cyanosis, clubbing, somewhat limited range of motion of both knees due to pain, limited range of motion of shoulders due to pain, tender over right greater trochanter
Skin-warm and dry
Neuro-grossly non-focal
Psych-calm, cooperative
SIRS -no obvious trigger. Clinically does not have pneumonia, no evidence of UTI. Suspect abnormal chest x-ray is atelectasis rather than pneumonia. Not hypoxic. No pulmonary symptoms, no urinary symptoms. Hold further antibiotics. Blood
cultures negative so far.
Patient was on Augmentin for 1 week prior to admission for UTI reportedly, although today she tells me she never had UTI symptoms. She believes the urinalysis was checked by the PCP for routine reasons.
Lower extremity Doppler ultrasound negative for DVT.
Mild procalcitonin elevation noted but trending down. Has remained afebrile. WBC count normal.
Bilateral knee pain -baseline has osteoarthritis, rheumatoid arthritis. Is on chronic methotrexate. Knee pain worsened when she fell 2 weeks ago landing on both knees. Admission x-ray of the left knee was negative for fracture, will order right
knee x-rays.
MRI of both knees completed, Left knee MRI without occult fracture, does show anterior cruciate ligament degeneration and age-indeterminate partial tear. Severe degenerative tear of the medial meniscus. Advanced arthritis. Bursitis noted.
Right greater trochanteric pain syndrome - suspect acute on chronic. Will change NSAIDs to Toradol IV [id number]. She states ibuprofen 800 mg is not helping.
Ambulatory dysfunction -mostly due to significant knee pain, arthritis, debility and deconditioning contributing. Continue PT/OT.
Mild traumatic rhabdomyolysis -CPK trending down.
Rheumatoid arthritis -on weekly methotrexate.
DM2 without hyperglycemia -hemoglobin A1c 7.3%. At home she is on metformin, semaglutide, glargine insulin.
Essential hypertension - controlled.
Hyperlipidemia - Crestor.
Obesity due to excess calories
Dispo -will need SNF on discharge when medically stable.
Anticipated Discharge: Today
Subjective/Interval History
-
Date of Service: January 28, 2024
Denies nausea
Objective Data
-
Vital Signs:
Vital Signs
Temp Pulse Resp BP Pulse Ox
97.9 F 80 18 132/73 98
01/28/24 07:31 01/28/24 07:31 01/28/24 07:31 01/28/24 07:31 01/28/24 07:31
I&O
01/27/24 01/28/24 01/29/24
06:59 06:59 06:59
Intake Total 1260 / 1260
Balance 1260 / 1260
[2024-01-28] MEDS: NOVOLOG FLEXPEN-LOW RESISTANCE 1 UNITS SC (12:00)
[2024-01-28] MEDS: PERCOCET 5/325 1 TABLET PO (12:12)
[2024-01-28 12:35] VITALS: BP 131/66; PULSE 96; O2SAT 95
[2024-01-28 13:10] VITALS: BP 131/66; PULSE 96; O2SAT 95
--- NOTE | 2024-01-28 13:57 | W.DCSUMMARY ---
Discharge Summary
Discharge Data
Date of Admission: 01/23/24
Date of Discharge: 01/28/24
-
Pending Results: No
Hospital Course
78-year-old female with past medical history of rheumatoid arthritis, diabetes mellitus, essential hypertension, hyperlipidemia, obesity, osteoarthritis came to the hospital with SIRS. Patient was monitored off antibiotics and her cultures continue
to be negative so she was not treated with any antibiotics. She also had bilateral knee pain for which she had an MRI which did not show any occult fracture however did show anterior cruciate ligament degeneration and age-indeterminate partial tear
along with severe degenerative tear of the medial meniscus. She was instructed to follow-up with orthopedics outpatient. She was also seen by physical therapy who recommended SNF. Once her symptoms continue to improve, she was then discharged to
SNF with instructions to follow-up with all her physicians outpatient.
Discharge Plan
-
Patient Disposition: Prison/SNF
Discharge Diagnosis/Procedures: Ambulatory dysfunction, severe osteoarthritis
Condition: Fair
Diet: Diabetic, Carb Controlled
Activity: With assistance and As tolerated
Driving Restrictions: No driving
Bathing Restrictions: None
Activity Restrictions/Additional Instructions:
Please follow-up with orthopedics outpatient
Referrals:
Britany Foster MD [Family Provider] - in less than 1 week
Prescriptions:
New
oxycodone-acetaminophen 5-325 mg Tablet
1 tab PO Q4HPRN PRN (Reason: severe pain) Qty: 10 0RF
Continued
rosuvastatin [Crestor] 10 mg Tablet
10 mg PO HS
metformin 500 mg tablet
1,000 mg PO BID
valsartan 160 mg tablet
320 mg PO DAILY
pantoprazole 40 mg tablet,delayed release (DR/EC)
40 mg PO DAILY
felodipine 10 mg tablet extended release 24 hr
10 mg PO DAILY
methotrexate sodium (PF) 25 mg/mL solution
25 mg IM SA
Ozempic 2 mg/dose (8 mg/3 mL) pen injector
2 mg SC ARNDT
Discontinued
amoxicillin-pot clavulanate 500-125 mg tablet
1 tab PO Q12
insulin glargine U-300 conc [Toujeo Max U-300 SoloStar] 300 unit/mL (3 mL) insulin pen
0 unit SC .SLIDING SCALE DAILY
Discharge Orders:
Discharge Patient (As Directed); Ordered 01/28/24
Ordered By: Blayne Delarosa
Discharge Date and Time
Discharge Date/Time: 01/28/24 16:59
Print Language: SLOVAK
--- NOTE | 2024-01-28 14:12 | CM ---
MD entered order for discharge.
Spoke with Jasmine at [facility] [phone]. She said she could accept pt today . Negative covid test and update clinical sent in care port as requested.
Updated PT OT done
Spoke with pt she said she felt she was ready for dc.
Asked pt about transport. She said family could not transport.Offered [employer] van . Transport form completed. Spoke with acute care Wilfrido pandey is $185.00. Pt provided number to acute care transport.
Pt spoke with her dgt about dc.
IMM reviewed agreed with dc. IMM signed on chart.
[facility] [phone]
fax [phone]
PLAN To [facility] via [employer] van
[2024-01-28 15:35] VITALS: BP 112/71
== END 2024-01-28 16:59 | DRG 565 ==
LOC: 3 WEST ACU 21:19
PROVIDERS: Hospitalist; Nurse Practitioner; Nurse Practitioner Family; ADMITTING PHYSICIAN Internal Medicine; ATTENDING PHYSICIAN Internal Medicine; EMERGENCY PHYSICIAN Emergency Medicine; FAMILY PHYSICIAN Internal Medicine
DX: T79.6XXA Traumatic ischemia of muscle, initial encounter (principal); J98.11 Atelectasis; R65.10 Systemic inflammatory response syndrome (SIRS) of non-infectious origin without acute organ dysfunction; E11.9 Type 2 diabetes mellitus without complications; Z68.37 Body mass index [BMI] 37.0-37.9, adult; I10 Essential (primary) hypertension; M06.9 Rheumatoid arthritis, unspecified; E66.812 Obesity, class 2; E78.5 Hyperlipidemia, unspecified; E86.0 Dehydration; K21.9 Gastro-esophageal reflux disease without esophagitis; G89.29 Other chronic pain; M54.9 Dorsalgia, unspecified; M25.561 Pain in right knee; M25.461 Effusion, right knee; M25.562 Pain in left knee; M70.52 Other bursitis of knee, left knee; M17.0 Bilateral primary osteoarthritis of knee; S83.242A Other tear of medial meniscus, current injury, left knee, initial encounter; S83.241A Other tear of medial meniscus, current injury, right knee, initial encounter; W01.0XXA Fall on same level from slipping, tripping and stumbling without subsequent striking against object, initial encounter; Y92.009 Unspecified place in unspecified non-institutional (private) residence as the place of occurrence of the external cause; R53.81 Other malaise; Z79.84 Long term (current) use of oral hypoglycemic drugs; Z79.85 Long-term (current) use of injectable non-insulin antidiabetic drugs; Z79.899 Other long term (current) drug therapy
CPT/HCPCS: 70450; 71046; 72110; 73564; 73721; 80053; 81003; 81015; 82550; 82962; 83036; 84145; 84443; 85025; 85027; 87040; 87502; 87811; 93005; 93970; 96374; 96375; 97116; 97167; 97535; 99285

== ENCOUNTER → 2024-08-28 13:14 | Outpatient (REF) | payer MEDICARE, OTHER, SELFPAY | LOC: WDC 13:14 | PROVIDERS: ATTENDING PHYSICIAN Internal Medicine | DX: Z12.31 Encounter for screening mammogram for malignant neoplasm of breast (principal) | CPT/HCPCS: 77063; 77067 ==

== ENCOUNTER 2024-12-29 09:19 | Inpatient (IN) | payer MEDICARE, OTHER, SELFPAY ==
[2024-12-28 16:21] VITALS: BP 154/101
[2024-12-28 16:48] LABS: Hematocrit 44.2 % (37.0-47.0); Hemoglobin 15.0 g/dL (12.0-16.0); Mean Corp Hgb Conc. 33.9 g/dL (33.0-37.0); Mean Corpuscular Volume 85.5 fL (81.0-99.0); Nucleated Red Blood Cells % 0 %; Platelet Count 306 10^3/uL (130-400); Red Cell Dist. Width 12.3 % (11.5-14.5)
[2024-12-28 17:03] LABS: COVID-19 Antigen Negative (Negative)
[2024-12-28 17:24] LABS: ALT (SGPT) 17 U/L (0-35); AST (SGOT) 26 U/L (14-36); Albumin 4.3 g/dl (3.5-5.0); Alkaline Phosphatase 112 U/L (38-126); Blood Urea Nitrogen 20 mg/dl (7-17); Calcium 10.1 mg/dl (8.4-10.2); Carbon Dioxide 23 mmol/L (22-30); Chloride 102 mmol/L (98-107); Glucose 176 mg/dl (70-99); Potassium 4.2 mmol/L (3.5-5.1); Sodium 134 mmol/L (135-145); Total Protein 7.4 g/dl (6.3-8.2); eGFR 56.60
--- NOTE | 2024-12-28 17:39 | ED.GENMED ---
History of Present Illness
<Ramon Bullock PA-C - Last Filed: 12/28/24 23:01>
General
Chief Complaint: Fever
Time Seen by Provider: 12/28/24 17:07
History of Present Illness
History of Present Illness:
79-year-old female with history of insulin-dependent diabetes, hypertension, and hyperlipidemia as well as rheumatoid arthritis presents to the emergency department for evaluation of fever for the past 3 to 4 days as well as mild productive cough.
Denies shortness of breath or chest pain. She was reportedly started on Augmentin on the first of this month for the same symptoms. Did not take any acetaminophen today. Reports weakness and was unable to support her own weight while in the
bathroom today, did not fall or feeling her head. Pain, dysuria, hematuria, or leg swelling.
Past History
<Ramon Bullock PA-C - Last Filed: 12/28/24 23:01>
Past History
ED Past Medical History: HTN, NIDDM and Other (Chronic back pain)
ED Past Surgical History: None
Social History
Tobacco: Non-smoker
Alcohol: None
Drug: None
Living: alone
Review of Systems
<Ramon Bullock PA-C - Last Filed: 12/28/24 23:01>
Review of Systems
Allergies reviewed?: Yes
All Other Systems: ROS reviewed and negative except as documented in HPI and ROS
Phy Exam
<Ramon Bullock PA-C - Last Filed: 12/28/24 23:01>
Physical Exam
Physical Exam:
GEN: Appears ill, generally tremulous
HEENT: Oral mucosa moist, no scleral icterus
Cardiac: Tachycardic, regular
Lungs: tachypneic, no respiratory distress, lungs clear
MSK: No gross deformity or injuries, no lower extremity edema
Skin: Good color, no pallor or jaundice, no rashes
Neuro: AO x3, moves all extremities freely
Psych: Calm, cooperative
Course
<Ramon Bullock PA-C - Last Filed: 12/28/24 23:01>
Orders/Labs/Results
Orders:
Orders
12/28/24 Dinner
1800 calorie (15 carb) Diabetic
At Your Request: Limited Participation
Does patient need a safe tray?: No
12/28/24 16:36
COVID-19 Antigen Urgent
Source: Nasal Swab
Complete Blood Count/With Diff Urgent
Comprehensive Metabolic Panel Urgent
Lactic Acid Urgent
Influenza A+B Rapid Molecular Urgent
JOSEFINA Source: Nasal Swab
Specimen Description:
12/28/24 17:24
0.9% Sodium Chloride 1000 ml [Nss] 1,000 ml IV BOLUS
Acetaminophen [Tylenol] 1,000 mg PO NOW STA
CR Chest - 2 Views Urgent
Comment:
Reason For Exam: fever/cough
12/28/24 18:31
Electrocardiogram (*1) Urgent
Reason for Study: Bradycardia / Tachycardia
EKG- Treatment ONCE
12/28/24 19:26
Urinalysis Reflex To Culture Urgent
Date Specimen was Collected: 12/28/24
Time Specimen was Collected: 17:34
Urine Microscopic Reflex Cult Urgent
Blood Culture Q30M
JOSEFINA Source: Blood/Venous
Specimen Description:
Blood Culture Q30M
JOSEFINA Source: Blood/Venous
Specimen Description:
Urine Culture Urgent
JOSEFINA Source: U
Specimen Description:
Date Specimen was Collected: 12/28/24
Time Specimen was Collected: 17:34
12/28/24 19:27
0.9% Sodium Chloride 1000 ml [Nss] 1,000 ml IV BOLUS
12/28/24 20:16
CT Chest/abd/pel W Iv Cont Urgent
Comment:
Reason For Exam: sepsis uncertain source
12/28/24 21:09
CefTRIAXone [Rocephin] 1,000 mg IV NOW STA
12/28/24 21:[address] Non Medication Order As Directed
Physician Order: please obtain a rectal temp
Above order entered?: Yes
12/28/24 22:04
Admit/Transfer Patient As Directed
Co-Sign Provider:
Level of Care: Observation services
Assign to:: Telemetry
Physician / Group: ashvin kennedy
Diagnosis: febrile illness unclear etiology
Reason for Telemetry: Arrhythmia
Date to Stop Telemetry: 12/31/24
Time to Stop Telemetry: 11:00
Reason for Hospitalization: febrile illness unclear etiology
Code Status As Directed
Resuscitation Status: Full Code
12/28/24 22:09
PRN Pain Medication Management As Directed
May give lesser potent ordered pain med per pt: Yes
preference::
Protocol:: Medication orders for pain may be administered in a
manner that supports deferring to patient preference
when the pt is:
- Requesting an ordered lesser potent pain medication.
Least to most potent pain medications are defined
as: acetaminophen < NSAID < tramadol < opioids
(morphine, oxycodone, hydromorphone).
- Requesting a lesser dose of the same medication IF
ORDERED.
- Requesting a less intrusive route of administration
if both routes are prescribed by the provider (PO <
IV).
12/28/24 22:58
Acetaminophen [Tylenol] 650 mg PO Q4HPRN PRN
Dextrose 50%-Water [Dextrose 50% Syringe] 12.5 grams IV [id number] PRN
Glucagon [GlucaGen] 1 mg IM PRN PRN
12/28/24 22:58
Activity As Directed
Activity Level: As Tolerated
Bedside Glucose Monitoring As Directed
Frequency: AC&HS
Additional Instructions:: Change to q6h if pt on TPN, tube feeding or not eating
Vital Signs As Directed
Frequency: Per unit guidelines
Pulse Ox/spot Check [RESP] Routine
Quantity: 1
Pt Eval And Treat Routine
Activity Level: As Tolerated
DX Deep Vein Thrombosis Video Routine
12/28/24 23:45
CefTRIAXone [Rocephin] 1,000 mg IV Q24H
12/29/24 06:00
Complete Blood Count/No Diff IN AM
Complete Blood Count/With Diff IN AM
Glycohemoglobin (HgbA1c) IN AM
12/29/24 07:30
Insulin Aspart Corrective Low [Novolog Flexpen-Low Resistance] See Protocol SC AC
12/29/24 08:00
Doxycycline [Vibramycin] 100 mg PO Q12
Pantoprazole [Protonix] 40 mg PO DAILY
Valsartan [Diovan] 320 mg PO DAILY
felodipine 10 mg PO DAILY
insulin glargine U-300 conc [Toujeo Max U-300 SoloStar] 20 unit SC DAILY
12/29/24 18:00
Enoxaparin Sodium [Lovenox] 40 mg SC QPM
12/29/24 22:00
Rosuvastatin Calcium [Crestor] 10 mg PO HS
12/30/24 06:00
Complete Blood Count/No Diff IN AM
Complete Blood Count/With Diff IN AM
12/31/24 06:00
Complete Blood Count/No Diff IN AM
Complete Blood Count/With Diff IN AM
12/31/24 11:00
DC Protocol for Telemetry ONCE
Abnormal Lab Results
12/28/24 12/28/24
16:36 19:26
WBC 11.3 H 10^3/uL
(4.8-10.8)
Abs Immat Gran (auto) 0.1 H 10^3/uL
(0-0.05)
Absolute Neuts (auto) 8.9 H 10^3/uL
(1.4-6.5)
Absolute Lymphs (auto) 1.0 L 10^3/uL
(1.2-3.4)
Absolute Monos (auto) 1.2 H 10^3/uL
(0.1-0.6)
Neutrophils % 78.8 H %
(42.2-75.2)
Lymphocytes % 9.1 L %
(20.5-51.1)
Monocytes % 10.8 H %
(1.7-9.3)
Sodium 134 L mmol/L
(135-145)
BUN 20 H mg/dl
(7-17)
Glucose 176 H mg/dl
(70-99)
Lactic Acid 2.4 H mmol/L
(0.7-2.0)
Total Bilirubin 1.4 H mg/dl
(0.2-1.3)
Urine Ketones 3+ A
(Negative)
Ur Occult Blood Reflex 2+ A
(Negative)
Urine Bilirubin 1+ A
(Negative)
Urine Urobilinogen 2+ A
(Neg - 1+)
Leukocyte Esterase Rfl 1+ A
(Negative)
Urine Bacteria (Reflex) Few A
(Negative)
Urine Albumin (Reflex) 3+ A
(Neg - Trace)
12/28/24 16:36
12/28/24 16:36
Vital Signs
Initial and Last Documented VS:
Initial Vital Signs
Temp Pulse Resp BP Pulse Ox
98.6 F 122 20 154/101 96
12/28/24 16:21 12/28/24 16:21 12/28/24 16:21 12/28/24 16:21 12/28/24 16:21
Last Documented Vital Signs
Temp Pulse Resp BP Pulse Ox
98.6 F 110 21 132/63 94
12/28/24 16:21 12/28/24 22:30 12/28/24 22:30 12/28/24 19:00 12/28/24 22:30
<Megan Heaton MD - Last Filed: 12/28/24 18:52>
Orders/Labs/Results
Orders:
Orders
12/28/24 Dinner
1800 calorie (15 carb) Diabetic
At Your Request: Limited Participation
Does patient need a safe tray?: No
12/28/24 16:36
COVID-19 Antigen Urgent
Source: Nasal Swab
Complete Blood Count/With Diff Urgent
Comprehensive Metabolic Panel Urgent
Lactic Acid Urgent
Influenza A+B Rapid Molecular Urgent
JOSEFINA Source: Nasal Swab
Specimen Description:
12/28/24 17:24
0.9% Sodium Chloride 1000 ml [Nss] 1,000 ml IV BOLUS
Acetaminophen [Tylenol] 1,000 mg PO NOW STA
CR Chest - 2 Views Urgent
Comment:
Reason For Exam: fever/cough
12/28/24 18:31
Electrocardiogram (*1) Urgent
Reason for Study: Bradycardia / Tachycardia
EKG- Treatment ONCE
12/28/24 19:26
Urinalysis Reflex To Culture Urgent
Date Specimen was Collected: 12/28/24
Time Specimen was Collected: 17:34
Urine Microscopic Reflex Cult Urgent
Blood Culture Q30M
JOSEFINA Source: Blood/Venous
Specimen Description:
Blood Culture Q30M
JOSEFINA Source: Blood/Venous
Specimen Description:
Urine Culture Urgent
JOSEFINA Source: U
Specimen Description:
Date Specimen was Collected: 12/28/24
Time Specimen was Collected: 17:34
12/28/24 19:27
0.9% Sodium Chloride 1000 ml [Nss] 1,000 ml IV BOLUS
12/28/24 20:16
CT Chest/abd/pel W Iv Cont Urgent
Comment:
Reason For Exam: sepsis uncertain source
12/28/24 21:09
CefTRIAXone [Rocephin] 1,000 mg IV NOW STA
12/28/24 21:[address] Non Medication Order As Directed
Physician Order: please obtain a rectal temp
Above order entered?: Yes
12/28/24 22:04
Admit/Transfer Patient As Directed
Co-Sign Provider:
Level of Care: Observation services
Assign to:: Telemetry
Physician / Group: ashvin kennedy
Diagnosis: febrile illness unclear etiology
Reason for Telemetry: Arrhythmia
Date to Stop Telemetry: 12/31/24
Time to Stop Telemetry: 11:00
Reason for Hospitalization: febrile illness unclear etiology
Code Status As Directed
Resuscitation Status: Full Code
12/28/24 22:09
PRN Pain Medication Management As Directed
May give lesser potent ordered pain med per pt: Yes
preference::
Protocol:: Medication orders for pain may be administered in a
manner that supports deferring to patient preference
when the pt is:
- Requesting an ordered lesser potent pain medication.
Least to most potent pain medications are defined
as: acetaminophen < NSAID < tramadol < opioids
(morphine, oxycodone, hydromorphone).
- Requesting a lesser dose of the same medication IF
ORDERED.
- Requesting a less intrusive route of administration
if both routes are prescribed by the provider (PO <
IV).
12/28/24 22:58
Acetaminophen [Tylenol] 650 mg PO Q4HPRN PRN
Dextrose 50%-Water [Dextrose 50% Syringe] 12.5 grams IV [id number] PRN
Glucagon [GlucaGen] 1 mg IM PRN PRN
12/28/24 22:58
Activity As Directed
Activity Level: As Tolerated
Bedside Glucose Monitoring As Directed
Frequency: AC&HS
Additional Instructions:: Change to q6h if pt on TPN, tube feeding or not eating
Vital Signs As Directed
Frequency: Per unit guidelines
Pulse Ox/spot Check [RESP] Routine
Quantity: 1
Pt Eval And Treat Routine
Activity Level: As Tolerated
DX Deep Vein Thrombosis Video Routine
12/28/24 23:45
CefTRIAXone [Rocephin] 1,000 mg IV Q24H
12/29/24 06:00
Complete Blood Count/No Diff IN AM
Complete Blood Count/With Diff IN AM
Glycohemoglobin (HgbA1c) IN AM
12/29/24 07:30
Insulin Aspart Corrective Low [Novolog Flexpen-Low Resistance] See Protocol SC AC
12/29/24 08:00
Doxycycline [Vibramycin] 100 mg PO Q12
Pantoprazole [Protonix] 40 mg PO DAILY
Valsartan [Diovan] 320 mg PO DAILY
felodipine 10 mg PO DAILY
insulin glargine U-300 conc [Toujeo Max U-300 SoloStar] 20 unit SC DAILY
12/29/24 18:00
Enoxaparin Sodium [Lovenox] 40 mg SC QPM
12/29/24 22:00
Rosuvastatin Calcium [Crestor] 10 mg PO HS
12/30/24 06:00
Complete Blood Count/No Diff IN AM
Complete Blood Count/With Diff IN AM
12/31/24 06:00
Complete Blood Count/No Diff IN AM
Complete Blood Count/With Diff IN AM
12/31/24 11:00
DC Protocol for Telemetry ONCE
Abnormal Lab Results
12/28/24 12/28/24
16:36 19:26
WBC 11.3 H 10^3/uL
(4.8-10.8)
Abs Immat Gran (auto) 0.1 H 10^3/uL
(0-0.05)
Absolute Neuts (auto) 8.9 H 10^3/uL
(1.4-6.5)
Absolute Lymphs (auto) 1.0 L 10^3/uL
(1.2-3.4)
Absolute Monos (auto) 1.2 H 10^3/uL
(0.1-0.6)
Neutrophils % 78.8 H %
(42.2-75.2)
Lymphocytes % 9.1 L %
(20.5-51.1)
Monocytes % 10.8 H %
(1.7-9.3)
Sodium 134 L mmol/L
(135-145)
BUN 20 H mg/dl
(7-17)
Glucose 176 H mg/dl
(70-99)
Lactic Acid 2.4 H mmol/L
(0.7-2.0)
Total Bilirubin 1.4 H mg/dl
(0.2-1.3)
Urine Ketones 3+ A
(Negative)
Ur Occult Blood Reflex 2+ A
(Negative)
Urine Bilirubin 1+ A
(Negative)
Urine Urobilinogen 2+ A
(Neg - 1+)
Leukocyte Esterase Rfl 1+ A
(Negative)
Urine Bacteria (Reflex) Few A
(Negative)
Urine Albumin (Reflex) 3+ A
(Neg - Trace)
12/28/24 16:36
12/28/24 16:36
Vital Signs
Initial and Last Documented VS:
Initial Vital Signs
Temp Pulse Resp BP Pulse Ox
98.6 F 122 20 154/101 96
12/28/24 16:21 12/28/24 16:21 12/28/24 16:21 12/28/24 16:21 12/28/24 16:21
Last Documented Vital Signs
Temp Pulse Resp BP Pulse Ox
98.6 F 110 21 132/63 94
12/28/24 16:21 12/28/24 22:30 12/28/24 22:30 12/28/24 19:00 12/28/24 22:30
<Ramon Bullock PA-C - Last Filed: 12/28/24 23:01>
MDM/Problems Addressed
MDM/Problems Addressed:
Source of the patient's fever is not immediately clear at this time. She has been on Augmentin for several days but has no findings suspicious for urinary tract infection and no findings on CT that would suggest a clear source. She is clearly
profoundly weak, does not appear to be markedly encephalopathic to warrant lumbar puncture at this time. Broad-spectrum IV antibiotics given given her visible rigors and leukocytosis this could suggest bacteremia, will admit for further management
<Ramon Bullock PA-C - Last Filed: 12/28/24 23:01>
*Pulse Oximetry
SaO2: 96
Oxygen Mode of Delivery: Room air
Patient hypoxic: no
*Critical Care Note
Total Time (30-74mins, 75-104mins- exclusive of procedures): Not Applicable
ED Attending Note
<Ramon Bullock PA-C - Last Filed: 12/28/24 23:01>
-
Portions of this chart may have been created with voice recognition software.� Occasional wrong word or��sound alike� substitutions may have occurred due to the inherent limitations of voice recognition software.
<Megan Heaton MD - Last Filed: 12/28/24 18:52>
ED Attending Note
Patient seen and examined by attending physician: Yes
I performed the substantive portion of visit, reviewed & personally made and approve the management plan that is documented in note by myself or KAMI.: Yes
ED Attending Note:
79-year-old female presents the emergency department with nasal congestion and cough for the last 2 weeks, followed by a fever that began approximately 2 days ago. She spoke to her doctor on either or Sunday and was started on amoxicillin
which she has been compliant with. Since that time, she does not feel like she is getting better. She continues to have fever associated with anorexia, and generalized weakness. She denies nausea, vomiting, headache, new neck pain, photophobia,
abdominal pain, chest pain, dyspnea, dysuria, urgency, frequency, rash. She tried to get up to go to the bathroom today and because of generalized weakness slid down to the floor, not hitting her head. It took her approximately 1 hour to maneuver
over to the phone to call for help. On exam, patient tired appearing but pleasant lucid, mucous membranes very dry, no photophobia, heart regular rate and rhythm but tachycardic, lungs CTA, no respiratory distress, abdomen soft and nontender.
Strongly suspect infectious process as etiology of her symptoms will resuscitate with IV fluids now pending studies, will need to be admitted, likely antibiotics, will assess for sepsis. No findings in history or physical to suggest central process
such as meningitis/encephalitis.
Discharge Plan
Departure
Patient Disposition: Admit
Date of Disposition: 12/28/24
Time of Disposition: 21:10
Admit to: Med/Surg
Presentation/result/management discussed w/ accepting MD/DO: Hospitalist
Discharge Problem:
Fever
Interventions
Interventions:
*Risk Screen - Suicide Last Done: 12/28/24 16:21
*General Assessment Last Done: 12/28/24 16:21
*Neglect/Abuse Screening Last Done: 12/28/24 16:21
*Nursing Disposition Last Done: 12/28/24 22:44
ED- Neurological Assessment Last Done: 12/28/24 17:16
ED-Skin Assessment Last Done: 12/28/24 17:16
Discharge Date and Time
Discharge Date/Time: 12/28/24 22:45
[2024-12-28] MEDS: TYLENOL 1000 MG PO (17:48)
[2024-12-28] MEDS: NSS 1000 IV ×2 (17:49→20:13)
[2024-12-28 18:29] VITALS: BP 132/73
[2024-12-28 19:00] VITALS: BP 132/63
[2024-12-28 19:33] LABS: Urine Character Clear (Clear)
[2024-12-28 19:48] LABS: Urine Red Blood Cell 0-2 /HPF (0-2)
[2024-12-28] MEDS: ROCEPHIN 1000 MG IV (21:20)
--- NOTE | 2024-12-28 21:23 | HPS.HSE ---
Addendum entered and electronically signed by Robert Pedraza DO 12/28/24 22:27:
Patient seen and examined independently. Agree with findings and plan as set forth by ALVARO Lares.
Patient is an 79y F with PMH significant for hypertension, DM-II and RA who presents to ED complaining of cough, chills and fatigue. Patient states that symptoms started about 5 days ago. She was prescribed Augmentin which she has been taking
for 4 days with no improvement in her symptoms. Patient reports cough productive of whitish mucus. She has had shaking chills and weakness. She slid to the floor today while trying to get off of the toilet. She was able to crawl to the phone and
call her daughter for help. She denies any head injury or LOC.
Ass:
Pneumonia / Bronchitis
Sepsis secondary to the above
Benign Hypertension
DM-II
Rheumatoid Arthritis
GERD
Plan:
Admit for further evaluation and treatment.
Respiratory symptoms, fever, leukocytosis, tachycardia. ? L base opacity on CXR and coarse breath sounds / wheeze at L base as well.
Abx with ceftriaxone and doxycycline.
Supportive care, mucolytics, etc.
Follow for clinical improvement.
Continue usual home medications.
Original Note:
Family Physician
-
Family Physician: Britany Foster
Chief Complaint
-
Weakness, fever, cough
History of Present Illness
79-year-old female complaining of fever up to 101F for the past 3 to 4 days as well as mild productive cough. Patient reports she was started on Augmentin on 12/24/2024 for the symptoms. She states today while getting up off the toilet she was weak
fell to the ground she crawled into her bedroom to call her daughter. Her daughter and 2 grandsons came to lift her up off of the floor. Patient denies headache, throat, rhinorrhea, chest pain, palpitations, shortness of breath, abdominal pain,
nausea, vomiting, diarrhea, urinary symptoms, rash, sick contacts. She lives alone in her own home.
Patient has past medical history of DM 2, HTN, HLD, RA, chronic back pain, HLD, GERD
Medical History
Past Medical History
Past Medical History: Reports Other
Additional Past Medical History:
DM 2
HTN
HLD
RA
chronic back pain
GERD
Past Surgical History: Reports Other (dental caps)
Social History
Tobacco: Non-smoker
Alcohol: None
Drug: None
Personal: Single
Living: Alone
Employment: Retired
Family History
Family History: Not pertinent
Allergies / Home Medications
Allergies reflects when Allergies were last updated in [facility].
Home Medications with original date entered in [facility]
Allergy/Medication List:
Allergies
Allergy/AdvReac Type Severity Reaction Status Date / Time
No Known Allergies Allergy Verified 12/28/24 16:26
Home Medications
rosuvastatin 10 mg tablet (Crestor) 10 mg PO HS High cholesterol 03/24/22
metformin 500 mg tablet 500 mg PO BID Diabetes 03/26/22
valsartan 160 mg tablet 320 mg PO DAILY Blood pressure 03/26/22
felodipine 10 mg tablet,extended release 24 hr 10 mg PO DAILY Blood Pressure 01/23/24
methotrexate sodium (PF) 25 mg/mL injection solution 25 mg IM SA rheumatoid arthritis 01/23/24
pantoprazole 40 mg tablet,delayed release 40 mg PO DAILY Gastrointestinal Issue 01/23/24
semaglutide 2 mg/dose (8 mg/3 mL) subcutaneous pen injector (Ozempic) 2 mg SC ARNDT Diabetes 01/23/24
insulin glargine U-300 conc 300 unit/mL (3 mL) subcutaneous pen (Toujeo Max U-300 SoloStar) 40 unit SC 12/28/24
Review of Systems
-
History Source: Patient
A 12 point ROS was completed and negative except as noted: Yes
Constitutional: Reports Fever, Fatigue and Chills
EENT: Denies Sore Throat
Respiratory: Reports Cough (Productive); Denies Trouble Breathing
Cardiac: Denies Chest Pain, Palpitations or Syncope
Abdomen/GI: Denies Abdominal Pain, Nausea, Vomiting, Diarrhea or Constipated
: Denies Dysuria, Frequency, Flank Pain, Incontinence or Urgency
Musculoskeletal: Denies Joint Pain or Joint Swelling
Skin: Denies Itching or Rash
Neurological: Reports Weakness (Generalized); Denies Dizzy or Headache
Endocrine: Reports No Symptoms
Hematologic/Lymphatic: Reports No Symptoms
Psych: Reports Calm
Physical Exam
Vital Signs
Vital Signs
Temp Pulse Resp BP Pulse Ox
98.6 F 112 15 132/63 95
12/28/24 16:21 12/28/24 19:30 12/28/24 19:30 12/28/24 19:00 12/28/24 19:30
Physical Exam
General: Conversant, Chills and Other (Generalized weakness)
HEENT: NormoCephalic, Anicteric, Atraumatic, PERRLA, Belk Conjunctivae and No Ptosis
Respiratory: Clear; No Wheezes, Rales or Rhonchi
Cardiac: S1/S2 and Tachycardia (Sinus tachycardia 112 bpm); No Murmur, Rub, Gallop or Peripheral Edema
Breast: Deferred by me
GI: Soft, Non Tender, Non Distended and Normal Bowel Sounds
Rectal: Deferred by Provider
Genito-urinary: Deferred by me
Musculoskeletal: No Clubbing, No Cyanosis and No Edema
Skin: Warm and Dry; No Rash
Neuro: AO x 3, No Motor Deficits, Cranial Nerves Intact, Tremors (Fine tremor to lower drawl suspect essential tremor) and Other (Hard of hearing); No Slurred Speech or Facial Droop
Psych: Calm
Laboratory Results
-
12/28/24 16:36
12/28/24 16:36
Laboratory Results
Lactic Acid 2.4 mmol/L (0.7-2.0) H 12/28/24 16:36
Total Bilirubin 1.4 mg/dl (0.2-1.3) H 12/28/24 16:36
AST 26 U/L (14-36) 12/28/24 16:36
ALT 17 U/L (0-35) 12/28/24 16:36
Alkaline Phosphatase 112 U/L (38-126) 12/28/24 16:36
Data Reviewed
-
CT Scan: Report Reviewed by me
Lab Data: Labs Reviewed by me
Impression/Plan
-
Impression/plan:
observation telemetry
#Acute febrile illness unclear etiology
WBC 11.3 with left shift, 98.6, HR 112, 132/63
COVID/influenza negative
-IV Rocephin given in ER continue Rocephin.
- Will add doxycycline
- Sputum culture
Follow CBC, BMP
PT/OT/case management consult
CXR: Mild patchy parenchymal opacity within the left lower lobe most likely atelectasis however pneumonia is differential.
Lungs appear hypoinflated especially in the left lung mild elevation of left hemidiaphragm
CT chest abdomen pelvis:
Mild dependent atelectasis in the posterior lower lungs. Additional linear densities within the inferior lingula
and inferior left lower lobe, which is most likely linear atelectasis or scarring. No evidence of consolidation to suggest pneumonia.
Cholelithiasis. No CT findings to suggest acute cholecystitis.
Colonic diverticula with no CT evidence for diverticulitis. No evidence for bowel obstruction or free intraperitoneal air.
Mild to moderate gaseous distention of the rectum with no evidence for stercoral colitis.
Bony degenerative changes as described. No evidence for discitis or osteomyelitis.
#HTN
BP 132/63
Continue valsartan 320 mg daily with hold parameters, felodipine 10 mg daily
#HLD
Continue Crestor 10 mg daily
#DM 2
-Hold Ozempic 2 mg patient was due today Sunday
-Accu-Cheks with SSI, check HgbA1c
-Continue metformin at 500 mg twice daily
-Continue Toujeo 20 units in a.m. patient typically takes 40 units last dose was yesterday 12/27/2024
#RA
Patient reports takes methotrexate 25 mg IM on Saturdays
GERD
Continue Protonix 40 mg daily
DVT prophylaxis
Subcu Lovenox
Full code
[2024-12-28 23:00] VITALS: BP 154/91; BMI 38.0
[2024-12-28 23:48] LABS: Glucose - Point of Care 157 mg/dl (70-99)
[2024-12-29] VITALS (8 sets, daily range): BP systolic 107–149; BP diastolic 52–95; PULSE 103–115; O2SAT 95
[2024-12-29] MEDS: LANTUS 0.16 UNITS SC ×2 (00:18→23:00)
[2024-12-29] MEDS: TYLENOL 650 MG PO ×5 (00:18→21:49)
[2024-12-29 08:11] LABS: Glucose - Point of Care 115 mg/dl (70-99)
[2024-12-29] MEDS: NOVOLOG FLEXPEN-LOW RESISTANCE SC ×2 (08:11→16:14)
[2024-12-29] MEDS: MUCINEX 600 MG PO ×2 (08:20→20:02)
[2024-12-29] MEDS: PROTONIX 40 MG PO (08:20)
[2024-12-29] MEDS: VIBRAMYCIN 100 MG PO ×2 (08:20→20:02)
[2024-12-29] MEDS: DIOVAN 320 MG PO (08:21)
[2024-12-29] MEDS: NORVASC 10 MG PO (08:24)
[2024-12-29 09:59] LABS: ALT (SGPT) 14 U/L (0-35); AST (SGOT) 22 U/L (14-36); Albumin 3.5 g/dl (3.5-5.0); Alkaline Phosphatase 95 U/L (38-126); Blood Urea Nitrogen 19 mg/dl (7-17); Calcium 9.4 mg/dl (8.4-10.2); Carbon Dioxide 21 mmol/L (22-30); Chloride 107 mmol/L (98-107); Estimated Creatinine Clearance 66 ml/min; Glucose 117 mg/dl (70-99); Potassium 3.9 mmol/L (3.5-5.1); Sodium 135 mmol/L (135-145); Total Protein 6.3 g/dl (6.3-8.2); eGFR > 60.00
[2024-12-29 10:07] LABS: Hematocrit 38.0 % (37.0-47.0); Hemoglobin 12.9 g/dL (12.0-16.0); Mean Corp Hgb Conc. 33.9 g/dL (33.0-37.0); Mean Corpuscular Volume 85.2 fL (81.0-99.0); Platelet Count 244 10^3/uL (130-400); Red Cell Dist. Width 12.5 % (11.5-14.5)
[2024-12-29 11:12] LABS: Glycohemoglobin (HgbA1c) 8.0 % (4.0-5.6)
[2024-12-29 12:07] LABS: Glucose - Point of Care 235 mg/dl (70-99)
[2024-12-29] MEDS: NOVOLOG FLEXPEN-LOW RESISTANCE 2 UNITS SC (12:51)
--- NOTE | 2024-12-29 13:34 | W.PN.HOSP.TC ---
Today's Communication/Plan
-
Monitor vitals
See plan
Follow fever curve
ID speech evaluation
Continue with antibiotic for now
follow cx
Assessment / Plan
Assessment / Plan
General: Conversant, Chills and Other (Generalized weakness)
HEENT: NormoCephalic, Anicteric, Atraumatic, PERRLA, [place] Conjunctivae and No Ptosis
Respiratory: Clear; No Wheezes, Rales or Rhonchi
Cardiac: S1/S2 and Tachycardia; No Murmur, Rub, Gallop or Peripheral Edema
Breast: Deferred by me
GI: Soft, Non Tender, Non Distended and Normal Bowel Sounds
Musculoskeletal:No Edema
Neuro: AO x 3, No Motor Deficits, Cranial Nerves Intact, Tremors (Fine tremor to lower drawl suspect essential tremor) and Other (Hard of hearing); No Slurred Speech or Facial Droop
Psych: Calm
Acute febrile illness unclear etiology
WBC 11.3 with left shift, 98.6, HR 112, 132/63
COVID/influenza negative
Rocephin and Doxy started on admission, continue for now
- Sputum culture
Persistent fever, follow fever curve. ID evaluation
Follow blood culture
Chest x-ray did not show opacity which is likely atelectasis. CT chest did not show any signs of pneumonia. Likely atelectasis or scarring.
UA not suggestive of UTI
procal
Speech evaluation
CXR: Mild patchy parenchymal opacity within the left lower lobe most likely atelectasis however pneumonia is differential.
Lungs appear hypoinflated especially in the left lung mild elevation of left hemidiaphragm
CT chest abdomen pelvis:
Mild dependent atelectasis in the posterior lower lungs. Additional linear densities within the inferior lingula
and inferior left lower lobe, which is most likely linear atelectasis or scarring. No evidence of consolidation to suggest pneumonia.
Cholelithiasis. No CT findings to suggest acute cholecystitis.
Colonic diverticula with no CT evidence for diverticulitis. No evidence for bowel obstruction or free intraperitoneal air.
Mild to moderate gaseous distention of the rectum with no evidence for stercoral colitis.
Bony degenerative changes as described. No evidence for discitis or osteomyelitis.
Lactic acidosis
Resolved
#HTN
Continue valsartan 320 mg daily with hold parameters, felodipine 10 mg daily
#HLD
Continue Crestor 10 mg daily
#DM 2
-Hold Ozempic 2 mg patient was due today Sunday
-Accu-Cheks with SSI, check HgbA1 8
Hold metformin
On Toujeo at home, currently on glargine nightly
#RA
Patient reports takes methotrexate 25 mg IM on Saturdays
GERD
Continue Protonix 40 mg daily
DVT prophylaxis
Subcu Lovenox
Full code
I spent a total of 52 minutes with the patient or on the floor. More than 50% of this time involved counseling and coordination of care.
Anticipated Discharge: > 48 hours
Subjective/Interval History
-
Date of Service: December 29, 2024
Continues to have chills
Objective Data
-
Labs:
Laboratory Results
12/29/24
08:03
WBC 8.2
Hgb 12.9
Hct 38.0
Plt Count 244 D
Sodium 135
Potassium 3.9
Chloride 107
Carbon Dioxide 21 L
BUN 19 H
Creatinine 0.8
Glucose 117 H
Calcium 9.4
Total Bilirubin 1.1
AST 22
ALT 14
Alkaline Phosphatase 95
Vital Signs:
Vital Signs
Temp Pulse Resp BP Pulse Ox
101.6 F H 108 18 149/95 97
12/29/24 13:22 12/29/24 13:22 12/29/24 11:35 12/29/24 11:35 12/29/24 11:35
--- NOTE | 2024-12-29 14:26 | CM ---
Reviewed chart. Met pt at bedside. IMM given and placed on chart. Pt states her is having a lot of back pain; pt nurse made aware. Refused IA at this time due to pain. Continues on IV ABX
Plan: TBD. Will follow for discharge needs
[2024-12-29 14:43] LABS: Procalcitonin 0.13 ng/ml (0.0-0.25)
--- NOTE | 2024-12-29 14:53 | PTOTSP ---
Speech Language Pathology
Pt seen for clinical bedside swallow evaluation. P.O. trials of puree, regular solids, and thin liquids provided. Adequate mastication, bolus formation, and A-P transit noted with no oral residue. Audible swallow noted. No overt signs of
aspiration. WBC WNL, and CT chest not concerning for PNA. Discussed with MD. Given acute febrile illness of unknown etiology, MD to order VSE to rule out silent aspiration.
Recommend:
(1) Regular solids/thin liquids
(2) General aspiration precautions
(3) Meds as tolerated
(4) AIR TOOL OPERATOR to complete VSE as ordered 12/30
[2024-12-29] MEDS: MORPHINE SULFATE 1 MG IV ×2 (15:00→22:00)
--- NOTE | 2024-12-29 15:44 | CON.ID ---
Consultation
-
Date/Time Consultation Requested: 12/29/2024 1334
Date/Time Consultation Performed: 12/29/2024 1545
Requesting Provider: Dr. Delarosa
Performing Provider: Dr. Camilo
Reason for Consultation: Fever
Chief Complaint / Past History
History of Present Illness
Daphnie Saldivar is an 79-year-old female being evaluated at the request of Dr. Delarosa regarding fever. History is obtained from chart review, along with patient interview. Additional history was obtained from the patient's daughter who was present
at the bedside.
The patient admits to cough and congestion starting 2 to 3 weeks ago, and more recently some decreased oral intake. Because of the ongoing cough she reached out to her PCP and she started Augmentin approximately 4 days ago. Despite antibiotic
therapy she continued to have cough, along with fever to 101 degrees at home. She also admits to rigors. She denies any sick contacts. There has been no travel. She denies any headache, chest pain. She admits to scant sputum production, but
denies any hemoptysis. She denies any abdominal pain, nausea or vomiting. She denies any dysuria or flank pain.
At admission, she was found to have a leukocytosis, and since admission she has had several fevers. Infectious Diseases asked to comment upon further antimicrobial management.
Past History
Additional Past Medical History:
HTN
DM
Chronic back pain
HLD
Rheumatoid arthritis
Past Surgical History: None
Allergy History:
No Known Allergies Allergy (Verified 12/28/24 16:26)
Medications Reviewed: Yes
Current Antibiotics:
Ceftriaxone 1 gm IV q.24 hours
Doxycycline 100 mg p.o. q.12 hours
Social History
Tobacco: Non-Smoker
Alcohol: None
Drug: None
Personal: Single
Living: Alone
Employment: Retired
Family History
Family History: Not Pertinent
Review of Systems
Vital Signs
Temp Pulse Resp BP Pulse Ox
101.6 F H 108 18 149/95 97
12/29/24 13:22 12/29/24 13:22 12/29/24 11:35 12/29/24 11:35 12/29/24 11:35
Physical Exam
Physical Exam
Constitutional: No Acute Distress, Comfortable, Non-toxic and Obese
Head: Normocephalic
Eyes: Pupils Equal, Pupils Round, No Conjunctival Hemorrhage and Sclera Anicteric
Oral: No Thrush and No Ulcers
Lymph Nodes: Negative Lymphadenopathy
Cardiovascular: Regular Rate and S1/S2; Negative S3/S4 or Murmur
Pulmonary: Coarse and Non Labored; Negative Wheezes or Rales
Gastrointestinal: Soft, Non Tender, Non Distended, Normal Bowel Sounds, No Rebound and No Guarding
Genito-Urinary: Negative [place]
Extremities: Negative Edema, Cyanosis or Erythema
Skin: Warm and Dry; Negative Rash or Jaundice
Neurological: Awake and Alert
Psychological: Calm
.
Lab / Diagnostic Study Results
12/29/24 08:03
12/29/24 08:03
Abs Immat Gran (auto) Cancelled 12/29/24 08:03
Absolute Neuts (auto) Cancelled 12/29/24 08:03
Absolute Lymphs (auto) Cancelled 12/29/24 08:03
Absolute Monos (auto) Cancelled 12/29/24 08:03
Absolute Basos (auto) Cancelled 12/29/24 08:03
Immature Gran % Cancelled 12/29/24 08:03
Neutrophils % Cancelled 12/29/24 08:03
Lymphocytes % Cancelled 12/29/24 08:03
Monocytes % Cancelled 12/29/24 08:03
Eosinophils % Cancelled 12/29/24 08:03
Basophils % Cancelled 12/29/24 08:03
Lactic Acid 1.7 mmol/L (0.7-2.0) 12/29/24 09:42
Procalcitonin 0.13 ng/ml (0.0-0.25) 12/29/24 14:09
Ur Squamous Epith Cells 6-10 /LPF (Few) 12/28/24 19:26
Microbiology Results
Micro:
12/28/24 19:26 Urine Culture - Pending
Urine
12/28/24 19:26 Blood Culture - Pending
Blood/Venous
12/28/24 19:26 Blood Culture - Pending
Blood/Venous
12/28/24 16:36 Influenza Types A & B (RIDGE) - Final
Nasal Swab Negative for Influenza A & B, NAAT
Negative results must be combined with clinical observations
and patient history.
Nucleic Acid Amplification test (NAAT)performed on the
[employer] platform.
Imaging:
12/28/2024 CT chest/abdomen/pelvis with contrast: Mild dependent atelectasis in the posterior lower lungs. Additional linear densities within the inferior lingula and inferior left lower lobe, which is most likely linear atelectasis or scarring. No
evidence of consolidation to suggest pneumonia. Cholelithiasis. No CT findings to suggest acute cholecystitis. Colonic diverticula with no CT evidence for diverticulitis. No evidence for bowel obstruction or free intraperitoneal air. Mild to
moderate gaseous distention of the rectum with no evidence for stercoral colitis. Bony degenerative changes as described. No evidence for discitis or osteomyelitis.
12/28/2024 CXR (2 view): lungs appear hypoinflated. Mild elevation of left hemidiaphragm. Mild patchy parenchymal opacity within the left lower lobe, most likely atelectasis. Please see full dictation for additional detail. Film personally viewed.
Assessment / Plan
Fevers
Suspected mucopurulent bronchitis
Leukocytosis; improved
HTN
DM; uncontrolled. HbA1c = 8
Chronic back pain
HLD
Rheumatoid arthritis
Recommendations:
White count noted to be improved today.
Fevers may lag appropriate therapy; would continue to follow.
Continue with ceftriaxone and doxycycline.
Check pneumococcal and Legionella urinary antigens.
Monitor white count and temperature curve.
Await sputum culture.
Further recommendations as additional data is returned.
[2024-12-29 16:08] LABS: Glucose - Point of Care 147 mg/dl (70-99)
[2024-12-29] MEDS: LOVENOX 40 MG SC (17:45)
[2024-12-29] MEDS: ROCEPHIN 1000 MG IV (20:01)
[2024-12-29] MEDS: CRESTOR 10 MG PO (20:02)
[2024-12-29] MEDS: STERILE WATER FOR INJECTION 10 ML IV (20:02)
[2024-12-29 21:43] LABS: Glucose - Point of Care 138 mg/dl (70-99)
[2024-12-30 03:14] VITALS: BP 112/57
[2024-12-30 08:00] LABS: Glucose - Point of Care 117 mg/dl (70-99)
[2024-12-30 08:13] VITALS: BP 163/85
[2024-12-30] MEDS: NOVOLOG FLEXPEN-LOW RESISTANCE SC ×3 (08:14→17:08)
[2024-12-30] MEDS: PROTONIX 40 MG PO (08:36)
[2024-12-30] MEDS: DIOVAN 320 MG PO (08:36)
[2024-12-30] MEDS: MUCINEX 600 MG PO ×2 (08:36→20:37)
[2024-12-30] MEDS: VIBRAMYCIN 100 MG PO ×2 (08:36→20:37)
[2024-12-30] MEDS: NORVASC 10 MG PO (08:37)
[2024-12-30] MEDS: MORPHINE SULFATE IV (08:37)
[2024-12-30] MEDS: ROXICODONE 5 MG PO (09:23)
--- NOTE | 2024-12-30 09:30 | VATNOTE ---
Called by PCN to restart pt's IV site, pt refusing restart at this time. Pt educated regarding need for IV (pain medication, telemetry safety, etc.) pt continues to refuse. Discussed with PCN who will notify
[2024-12-30] MEDS: TYLENOL 650 MG PO ×3 (09:44→22:13)
[2024-12-30] MEDS: ZOFRAN ODT (ORALLY DISINTEGRATING) 4 MG PO (10:10)
[2024-12-30 10:27] LABS: Hematocrit 40.4 % (37.0-47.0); Hemoglobin 13.7 g/dL (12.0-16.0); Mean Corp Hgb Conc. 33.9 g/dL (33.0-37.0); Mean Corpuscular Volume 86.1 fL (81.0-99.0); Nucleated Red Blood Cells % 0 %; Platelet Count 274 10^3/uL (130-400); Red Cell Dist. Width 12.4 % (11.5-14.5)
[2024-12-30 10:57] LABS: ALT (SGPT) 15 U/L (0-35); AST (SGOT) 21 U/L (14-36); Albumin 3.7 g/dl (3.5-5.0); Alkaline Phosphatase 93 U/L (38-126); Blood Urea Nitrogen 18 mg/dl (7-17); Calcium 9.3 mg/dl (8.4-10.2); Carbon Dioxide 24 mmol/L (22-30); Chloride 104 mmol/L (98-107); Estimated Creatinine Clearance 66 ml/min; Glucose 135 mg/dl (70-99); Potassium 3.6 mmol/L (3.5-5.1); Sodium 133 mmol/L (135-145); Total Protein 6.5 g/dl (6.3-8.2); eGFR > 60.00
[2024-12-30 11:27] VITALS: BP 96/54
[2024-12-30 11:44] LABS: Glucose - Point of Care 149 mg/dl (70-99)
--- NOTE | 2024-12-30 12:21 | W.PN.HOSP.TC ---
Today's Communication/Plan
-
Monitor vital signs and see plan
Follow fever curve
ID to see today
Follow cultures
Check abdominal x-ray
Discussed with daughter
Assessment / Plan
Assessment / Plan
General: Conversant, Chills and Other (Generalized weakness)
HEENT: NormoCephalic, Anicteric, Atraumatic, PERRLA
Respiratory: Clear; No Wheezes, Rales or Rhonchi
Cardiac: S1/S2 and Tachycardia; No Murmur, Rub, Gallop or Peripheral Edema
Breast: Deferred by me
GI: Soft, Non Tender, Non Distended and Normal Bowel Sounds
Musculoskeletal:No Edema
Neuro: AO x 3, No Motor Deficits, Cranial Nerves Intact, Tremors (Fine tremor to lower drawl suspect essential tremor) and Other (Hard of hearing); No Slurred Speech or Facial Droop
Psych: Calm
Acute febrile illness unclear etiology
has chills and rigors
WBC 11.3 with left shift, 98.6, HR 112, 132/63
COVID/influenza negative
Rocephin and Doxy started on admission, continue for now
- Sputum culture
Persistent fever, follow fever curve. ID following
Follow blood culture, NGTD
Legionella, strep negative
Chest x-ray did not show opacity which is likely atelectasis. CT chest did not show any signs of pneumonia. Likely atelectasis or scarring.
UA not suggestive of UTI
procal noted
Speech evaluation; could not get VSE today due to nausea vomiting. VSE in am
Check abdominal x-ray
If headache persistent along with fever then likely will need LP
CXR: Mild patchy parenchymal opacity within the left lower lobe most likely atelectasis however pneumonia is differential.
Lungs appear hypoinflated especially in the left lung mild elevation of left hemidiaphragm
CT chest abdomen pelvis:
Mild dependent atelectasis in the posterior lower lungs. Additional linear densities within the inferior lingula
and inferior left lower lobe, which is most likely linear atelectasis or scarring. No evidence of consolidation to suggest pneumonia.
Cholelithiasis. No CT findings to suggest acute cholecystitis.
Colonic diverticula with no CT evidence for diverticulitis. No evidence for bowel obstruction or free intraperitoneal air.
Mild to moderate gaseous distention of the rectum with no evidence for stercoral colitis.
Bony degenerative changes as described. No evidence for discitis or osteomyelitis.
Lactic acidosis
Resolved
#HTN
Continue valsartan 320 mg daily with hold parameters, felodipine 10 mg daily
#HLD
Continue Crestor 10 mg daily
#DM 2
-Hold Ozempic 2 mg patient was due Sunday
-Accu-Cheks with SSI, check HgbA1 8
Hold metformin
On Toujeo at home, currently on glargine nightly
#RA
Patient reports takes methotrexate 25 mg IM on Saturdays
GERD
Continue Protonix 40 mg daily
DVT prophylaxis
Subcu Lovenox
Full code
I spent a total of 51 minutes with the patient or on the floor. More than 50% of this time involved counseling and coordination of care.
Anticipated Discharge: 24 - 48 hours
Subjective/Interval History
-
Date of Service: December 30, 2024
has some pain
Objective Data
-
Labs:
Laboratory Results
12/30/24
10:10
WBC 6.6
Hgb 13.7
Hct 40.4
Plt Count 274
Sodium 133 L
Potassium 3.6
Chloride 104
Carbon Dioxide 24
BUN 18 H
Creatinine 0.8
Glucose 135 H
Calcium 9.3
Total Bilirubin 1.0
AST 21
ALT 15
Alkaline Phosphatase 93
Vital Signs:
Vital Signs
Temp Pulse Resp BP Pulse Ox
98.2 F 95 18 96/54 96
12/30/24 11:27 12/30/24 11:27 12/30/24 11:27 12/30/24 11:27 12/30/24 11:27
I&O
12/29/24 12/30/24 12/31/24
06:59 06:59 06:59
Intake Total 780 / 1020 240 / 240
Output Total 150 / 600 450 / 450
Balance 630 / 420 -210 / -210
--- NOTE | 2024-12-30 14:58 | W.PN.ID1 ---
Date of Service
Date of Service: December 30, 2024
Today's Communication
Continue antibiotics. See below�
Assessment / Plan
Fevers
Suspected mucopurulent bronchitis
Leukocytosis; improved
HTN
DM; uncontrolled. HbA1c = 8
Chronic back pain
HLD
Rheumatoid arthritis
Recommendations:
White count noted to be improved today.
Pneumococcal and Legionella urinary antigens negative.
Fevers may lag appropriate therapy; would continue to follow.
Continue with ceftriaxone and doxycycline. At discharge, ceftriaxone can be transition to oral cefdinir.
Monitor white count and temperature curve.
����������������������������������������������������������
Chief Complaint
-: Fever
Subjective / Review of Systems
Patient seen and examined. Reports feeling somewhat improved. Temperature curve appears to be improving.
Review of Systems: Cough (Slight)
Vital Signs / Physical Exam
Vital Signs
Vital Signs
Temp Pulse Resp BP Pulse Ox
98.2 F 95 18 96/54 96
12/30/24 11:27 12/30/24 11:27 12/30/24 11:27 12/30/24 11:27 12/30/24 11:27
Physical Exam
Constitutional: No Acute Distress, Comfortable and Non-toxic
Cardiovascular: S1/S2; Negative S3/S4
Pulmonary: Non Labored; Negative Wheezes, Rales or Rhonchi
Gastrointestinal: Soft, Non Tender and Non Distended
Neurological: Awake and Alert
Psychological: Calm
Objective Data
Lab Data
Lab Results
12/30/24 10:10
12/30/24 10:10
Estimated Creat Clear 66 ml/min 12/30/24 10:10
Lactic Acid 1.7 mmol/L (0.7-2.0) 12/29/24 09:42
Total Bilirubin 1.0 mg/dl (0.2-1.3) 12/30/24 10:10
AST 21 U/L (14-36) 12/30/24 10:10
ALT 15 U/L (0-35) 12/30/24 10:10
Alkaline Phosphatase 93 U/L (38-126) 12/30/24 10:10
Most recent labs reviewed.
Micro Results:
12/28/24 19:26 Urine Culture - Final
Urine NO GROWTH
12/29/24 16:11 Respiratory Culture - Final
Sputum Gram Stain - no WBCs; few squamous epithelial cells.
12/28/24 19:26 Blood Culture - Preliminary
Blood/Venous No Growth in 24 hours- Final report to follow
12/28/24 19:26 Blood Culture - Preliminary
Blood/Venous No Growth in 24 hours- Final report to follow
12/29/24 18:04 Legionella Urinary Antigen - Final
Urine Negative for Legionella pneumophila Serogroup 1 antigen.
A negative result does not rule out the possiblity of
Legionella infection due to other serogroups or species of
Legionella. Clinical correlation is recommended.
Streptococcus pneumoniae Antigen (M - Final
Negative for Streptococcus pneumoniae antigen.
A negative result does not exclude infection with
Streptococcus pneumoniae. Clinical correlation is
recommended.
12/28/24 16:36 Influenza Types A & B (RIDGE) - Final
Nasal Swab Negative for Influenza A & B, NAAT
Negative results must be combined with clinical observations
and patient history.
Nucleic Acid Amplification test (NAAT)performed on the
[employer] platform.
Imaging:
12/28/2024 CT chest/abdomen/pelvis with contrast: Mild dependent atelectasis in the posterior lower lungs. Additional linear densities within the inferior lingula and inferior left lower lobe, which is most likely linear atelectasis or scarring. No
evidence of consolidation to suggest pneumonia. Cholelithiasis. No CT findings to suggest acute cholecystitis. Colonic diverticula with no CT evidence for diverticulitis. No evidence for bowel obstruction or free intraperitoneal air. Mild to
moderate gaseous distention of the rectum with no evidence for stercoral colitis. Bony degenerative changes as described. No evidence for discitis or osteomyelitis.
12/28/2024 CXR (2 view): lungs appear hypoinflated. Mild elevation of left hemidiaphragm. Mild patchy parenchymal opacity within the left lower lobe, most likely atelectasis. Please see full dictation for additional detail. Film personally viewed.
--- NOTE | 2024-12-30 15:09 | PN.CDI ---
CDI
- -
CDI:
Physician Documentation Request
Admit Date: 12/29/24 09:19
Dear Doctor,
Please review the following and provide your response in the progress notes.
Clinical Indicators:
Pt admitted with fevers/leukocytosis
ID consult and progress note 12/29&12/30, ' Suspected mucopurulent bronchitis..Continue with ceftriaxone and doxycycline....'
Clarify which of the following accurately represents the acuity of the (mucopurulent bronchitis ):
Acute
Chronic
Other ( please specify)
Use of terms such as suspected, likely, concern for, or probable (associated with a specific diagnosis that is being evaluated, monitored, or treated as if it exists) are acceptable and can be coded in the inpatient setting, when documented at the
time of discharge.
Thank you,
Lidia Ch RN
CDI Specialist
[place] [facility]
Please use your independent medical judgment in providing your response.
--- NOTE | 2024-12-30 15:12 | PN.CDI ---
CDI
- -
CDI:
Physician Documentation Request
Admit Date: 12/29/24 09:19
Dear Doctor [place],
Please review the following and provide your response in the progress notes.
Clinical Indicators:
Pt admitted with fevers/leukocytosis
Documented per H&P, '
ID consult and progress note 12/29&12/30, ' Suspected mucopurulent bronchitis..Continue with ceftriaxone and doxycycline....'... Bronchitis Sepsis secondary to the above..fever, leukocytosis, tachycardia..'
On admission HR 129, Respirations 26, Tmax ( 12/29) 101.6
Please update the status of sepsis documented in H&P:
[id number] valid diagnosis
- Systemic manifestations of infection, with 2 or more SIRS criteria which include:
- Fever >100.9 degrees F or hypothermia < 96.8 degrees F
- Leukocytosis - WBC > 12,000 or leukopenia - WBC < 4,000 or > 10% bands
- Tachycardia > 90 beats per minute
- Tachypnea - RR > 20 breaths per minute or PaCO2 , 32mmHg
Source: Merck Manual 2013
Sepsis -ruled out
Other ( please specify)
Use of terms such as suspected, likely, concern for, or probable (associated with a specific diagnosis that is being evaluated, monitored, or treated as if it exists) are acceptable and can be coded in the inpatient setting, when documented at the
time of discharge.
Thank you,
Lidia Ch RN
CDI Specialist
[place]
Please use your independent medical judgment in providing your response.
[2024-12-30 16:07] VITALS: BP 109/64
--- NOTE | 2024-12-30 16:38 | CM ---
Patient seen at bedside
IA completed
Spoke with dtr Reba
PT rec SNF
Lives alone in 1 story home, [address]
PLOF: Independent, cane
DME: [facility]
has had vn in past/[facility] in past
Patient request referral to [facility]-referral entered in [facility]port
no pre-auth needed
PCP: Britany Foster
Pharmacy: [facility]
Plan: SNF, pending bed availability, CM to continue to follow
[2024-12-30 17:00] LABS: Glucose - Point of Care 122 mg/dl (70-99)
[2024-12-30] MEDS: LOVENOX 40 MG SC (17:27)
[2024-12-30 19:49] VITALS: BP 107/55
[2024-12-30] MEDS: ROCEPHIN 1000 MG IV (20:37)
[2024-12-30] MEDS: STERILE WATER FOR INJECTION 10 ML IV (20:38)
[2024-12-30 21:45] LABS: Glucose - Point of Care 113 mg/dl (70-99)
[2024-12-30] MEDS: CRESTOR 10 MG PO (22:04)
[2024-12-30] MEDS: LANTUS 0.16 UNITS SC (22:04)
[2024-12-30] MEDS: MORPHINE SULFATE 1 MG IV (23:55)
[2024-12-30 23:59] VITALS: BP 132/76
[2024-12-31 03:05] VITALS: BP 127/64
[2024-12-31] MEDS: MORPHINE SULFATE 1 MG IV (06:28)
[2024-12-31 07:46] VITALS: BP 130/86
[2024-12-31 08:26] LABS: Glucose - Point of Care 103 mg/dl (70-99)
[2024-12-31] MEDS: NOVOLOG FLEXPEN-LOW RESISTANCE SC ×3 (08:33→17:24)
[2024-12-31] MEDS: TYLENOL 650 MG PO ×2 (08:42→16:32)
--- NOTE | 2024-12-31 08:50 | PTCARENOTE ---
pt states she will take her meds post VSE.
[2024-12-31] MEDS: NORVASC 10 MG PO (10:43)
[2024-12-31] MEDS: VIBRAMYCIN 100 MG PO ×2 (10:46→21:06)
[2024-12-31] MEDS: MUCINEX 600 MG PO ×2 (10:46→21:06)
[2024-12-31] MEDS: DIOVAN 320 MG PO (10:46)
[2024-12-31] MEDS: PROTONIX 40 MG PO (10:46)
--- NOTE | 2024-12-31 11:00 | W.PN.ID1 ---
Date of Service
Date of Service: December 31, 2024
Today's Communication
Continue antibiotics. See below...
Assessment / Plan
Fevers
Suspected acute mucopurulent bronchitis
Leukocytosis; improved
HTN
DM; uncontrolled. HbA1c = 8
Chronic back pain
HLD
Rheumatoid arthritis
Recommendations:
Prior leukocytosis resolved.
Pneumococcal and Legionella urinary antigens negative.
'Fever' noted yesterday, although was a rectal temperature which is known to be elevated when compared to oral temperatures.
Transition to oral cefdinir. Continue oral doxycycline. Continue with an additional 7 days of antibiotics.
����������������������������������������������������������
Chief Complaint
-: Fever
Subjective / Review of Systems
Review of Systems: No Fever, Headache and Cough (minimal)
Vital Signs / Physical Exam
Vital Signs
Vital Signs
Temp Pulse Resp BP Pulse Ox
98 F 74 18 147/90 95
12/31/24 07:46 12/31/24 10:43 12/31/24 07:46 12/31/24 10:43 12/31/24 07:46
Physical Exam
Constitutional: No Acute Distress, Comfortable and Non-toxic
Cardiovascular: S1/S2; Negative S3/S4
Pulmonary: Non Labored; Negative Wheezes, Rales or Rhonchi
Gastrointestinal: Soft, Non Tender and Non Distended
Neurological: Awake and Alert
Psychological: Calm
Objective Data
Lab Data
Estimated Creat Clear 66 ml/min 12/30/24 10:10
Lactic Acid 1.7 mmol/L (0.7-2.0) 12/29/24 09:42
Total Bilirubin 1.0 mg/dl (0.2-1.3) 12/30/24 10:10
AST 21 U/L (14-36) 12/30/24 10:10
ALT 15 U/L (0-35) 12/30/24 10:10
Alkaline Phosphatase 93 U/L (38-126) 12/30/24 10:10
Most recent labs reviewed.
Micro Results:
12/28/24 19:26 Blood Culture - Preliminary
Blood/Venous No Growth in 48 hours- Final report to follow
12/28/24 19:26 Blood Culture - Preliminary
Blood/Venous No Growth in 48 hours- Final report to follow
12/28/24 19:26 Urine Culture - Final
Urine NO GROWTH
12/29/24 16:11 Respiratory Culture - Final
Sputum Gram Stain - Final
12/29/24 18:04 Legionella Urinary Antigen - Final
Urine Negative for Legionella pneumophila Serogroup 1 antigen.
A negative result does not rule out the possiblity of
Legionella infection due to other serogroups or species of
Legionella. Clinical correlation is recommended.
Streptococcus pneumoniae Antigen (M - Final
Negative for Streptococcus pneumoniae antigen.
A negative result does not exclude infection with
Streptococcus pneumoniae. Clinical correlation is
recommended.
12/28/24 16:36 Influenza Types A & B (RIDGE) - Final
Nasal Swab Negative for Influenza A & B, NAAT
Negative results must be combined with clinical observations
and patient history.
Nucleic Acid Amplification test (NAAT)performed on the
[employer] platform.
Imaging:
12/28/2024 CT chest/abdomen/pelvis with contrast: Mild dependent atelectasis in the posterior lower lungs. Additional linear densities within the inferior lingula and inferior left lower lobe, which is most likely linear atelectasis or scarring. No
evidence of consolidation to suggest pneumonia. Cholelithiasis. No CT findings to suggest acute cholecystitis. Colonic diverticula with no CT evidence for diverticulitis. No evidence for bowel obstruction or free intraperitoneal air. Mild to
moderate gaseous distention of the rectum with no evidence for stercoral colitis. Bony degenerative changes as described. No evidence for discitis or osteomyelitis.
12/28/2024 CXR (2 view): lungs appear hypoinflated. Mild elevation of left hemidiaphragm. Mild patchy parenchymal opacity within the left lower lobe, most likely atelectasis. Please see full dictation for additional detail. Film personally viewed.
Care Review
Plan reviewed with: Physician (Hospitalist)
[2024-12-31 11:38] LABS: Glucose - Point of Care 131 mg/dl (70-99)
--- NOTE | 2024-12-31 11:45 | PTOTSP ---
Speech Therapy VSE:
Patient presents with functional oral and pharyngeal stage of swallowing. No confirmed penetration or aspiration across the study. No significant pharyngeal residue. Please see patient care note for full details of swallowing physiology.
Recommend:
1. Regular solids and thin liquids
2. Medications as tolerated.
3. General aspiration precautions
4. No further skilled intervention warranted. CURB BUILDER to s/o
--- NOTE | 2024-12-31 11:53 | CM ---
Reviewed Chart. Met pt bedside. IMM obtained. Remains on IV ABX. Final BC-pending
CM spoke with Daphnie from [facility]. Should have a bed available tomorrow. Pt aware. Pt needs to be fever free for 48 hrs before transfer. DG: acute Mucopurulent bronchitis per ID.
Plan: [facility]
[2024-12-31 12:22] LABS: Hematocrit 37.5 % (37.0-47.0); Hemoglobin 13.0 g/dL (12.0-16.0); Mean Corp Hgb Conc. 34.7 g/dL (33.0-37.0); Mean Corpuscular Volume 86.2 fL (81.0-99.0); Nucleated Red Blood Cells % 0 %; Platelet Count 253 10^3/uL (130-400); Red Cell Dist. Width 12.4 % (11.5-14.5)
--- NOTE | 2024-12-31 12:46 | W.PN.HOSP.TC ---
Today's Communication/Plan
-
monitor vitals
see plan
cw abx
pt
follow fever curve
Assessment / Plan
Assessment / Plan
General: Conversant, Chills and Other (Generalized weakness)
HEENT: NormoCephalic, Anicteric, Atraumatic, PERRLA
Respiratory: Clear; No Wheezes, Rales or Rhonchi
Cardiac: S1/S2 and Tachycardia; No Murmur, Rub, Gallop or Peripheral Edema
Breast: Deferred by me
GI: Soft, Non Tender, Non Distended and Normal Bowel Sounds
Musculoskeletal:No Edema
Neuro: AO x 3, No Motor Deficits, Cranial Nerves Intact, Tremors (Fine tremor to lower drawl suspect essential tremor) and Other (Hard of hearing); No Slurred Speech or Facial Droop
Psych: Calm
Sepsis POA likely 2/2 Acute mucopurulent bronchitis
has chills and rigors
WBC 11.3 with left shift, 98.6, HR 112, 132/63
COVID/influenza negative
Rocephin and Doxy started on admission, continue for now
- Sputum culture
Persistent fever, follow fever curve. ID following
Follow blood culture, NGTD
Legionella, strep negative
Chest x-ray did not show opacity which is likely atelectasis. CT chest did not show any signs of pneumonia. Likely atelectasis or scarring.
UA not suggestive of UTI
procal noted
Speech evaluation; VSE noted. ok for regular per speech
abdominal x-ray without any obstruction
If headache persistent along with fever then likely will need LP
CXR: Mild patchy parenchymal opacity within the left lower lobe most likely atelectasis however pneumonia is differential.
Lungs appear hypoinflated especially in the left lung mild elevation of left hemidiaphragm
CT chest abdomen pelvis:
Mild dependent atelectasis in the posterior lower lungs. Additional linear densities within the inferior lingula
and inferior left lower lobe, which is most likely linear atelectasis or scarring. No evidence of consolidation to suggest pneumonia.
Cholelithiasis. No CT findings to suggest acute cholecystitis.
Colonic diverticula with no CT evidence for diverticulitis. No evidence for bowel obstruction or free intraperitoneal air.
Mild to moderate gaseous distention of the rectum with no evidence for stercoral colitis.
Bony degenerative changes as described. No evidence for discitis or osteomyelitis.
Lactic acidosis
Resolved
#HTN
Continue valsartan 320 mg daily with hold parameters, felodipine 10 mg daily
#HLD
Continue Crestor 10 mg daily
#DM 2
-Hold Ozempic 2 mg patient was due Sunday
-Accu-Cheks with SSI, check HgbA1 8
Hold metformin
On Toujeo at home, currently on glargine nightly
#RA
Patient reports takes methotrexate 25 mg IM on Saturdays
GERD
Continue Protonix 40 mg daily
DVT prophylaxis
Subcu Lovenox
Full code
Anticipated Discharge: Within 24 hours
Subjective/Interval History
-
Date of Service: December 31, 2024
denies pain
Objective Data
-
Labs:
Laboratory Results
12/31/24
11:58
WBC 5.6
Hgb 13.0
Hct 37.5
Plt Count 253
Sodium Pending
Potassium Pending
Chloride Pending
Carbon Dioxide Pending
BUN Pending
Creatinine Pending
Glucose Pending
Calcium Pending
Total Bilirubin Pending
AST Pending
ALT Pending
Alkaline Phosphatase Pending
Vital Signs:
Vital Signs
Temp Pulse Resp BP Pulse Ox
98.2 F 74 18 147/90 95
12/31/24 11:43 12/31/24 10:43 12/31/24 11:43 12/31/24 10:43 12/31/24 11:43
I&O
12/30/24 12/31/24 01/01/25
06:59 06:59 06:59
Intake Total 780 / 1020 240 / 240
Output Total 150 / 600 1300 / 1300
Balance 630 / 420 -1060 / -1060
[2024-12-31 12:57] LABS: ALT (SGPT) 13 U/L (0-35); AST (SGOT) 19 U/L (14-36); Albumin 3.6 g/dl (3.5-5.0); Alkaline Phosphatase 79 U/L (38-126); Blood Urea Nitrogen 14 mg/dl (7-17); Calcium 9.3 mg/dl (8.4-10.2); Carbon Dioxide 23 mmol/L (22-30); Chloride 106 mmol/L (98-107); Estimated Creatinine Clearance 66 ml/min; Glucose 122 mg/dl (70-99); Potassium 4.0 mmol/L (3.5-5.1); Sodium 133 mmol/L (135-145); Total Protein 6.2 g/dl (6.3-8.2); eGFR > 60.00
[2024-12-31 15:30] VITALS: BP 138/76; PULSE 87; O2SAT 98
[2024-12-31 15:52] VITALS: BP 138/76
--- NOTE | 2024-12-31 16:54 | PN.CDI ---
CDI
- -
CDI:
Physician Documentation Request
Admit Date: 12/29/24 09:19
Dear Doctor Washington,
Please review the following and provide your response in the progress notes.
Clinical Indicators:
Pt admitted with sepsis 2/2 acute mucopurulent bronchitis
Sodium levels are as below/Pt did get IVFs
12/28/24 12/30/24 12/31/24
16:36 10:10 11:58
Sodium 134 L 133 L 133 L
Based on the above, could you clarify in the progress notes, the appropriate diagnosis, if significant, that supports the above abnormalities and additional evaluation, monitoring and/or treatment rendered:
Hyponatremia
Abnormal lab value
Other ( please specify)
Use of terms such as suspected, likely, concern for, or probable (associated with a specific diagnosis that is being evaluated, monitored, or treated as if it exists) are acceptable and can be coded in the inpatient setting, when documented at the
time of discharge.
Thank you,
Lidia Ch RN
CDI Specialist
[place] [facility]
Please use your independent medical judgment in providing your response.
[2024-12-31 17:24] LABS: Glucose - Point of Care 122 mg/dl (70-99)
[2024-12-31] MEDS: LOVENOX 40 MG SC (17:24)
[2024-12-31] MEDS: OMNICEF 300 MG PO (21:06)
[2024-12-31 21:13] LABS: Glucose - Point of Care 114 mg/dl (70-99)
[2024-12-31] MEDS: LANTUS 0.16 UNITS SC (21:55)
[2024-12-31] MEDS: CRESTOR 10 MG PO (21:55)
[2024-12-31 23:25] VITALS: BP 126/81
[2025-01-01] MEDS: STERILE WATER FOR INJECTION IV (01:07)
[2025-01-01 07:00] VITALS: BP 148/88
[2025-01-01 08:03] LABS: Glucose - Point of Care 111 mg/dl (70-99)
[2025-01-01] MEDS: NOVOLOG FLEXPEN-LOW RESISTANCE SC ×3 (08:42→16:55)
[2025-01-01] MEDS: DIOVAN 320 MG PO (09:32)
[2025-01-01] MEDS: VIBRAMYCIN 100 MG PO ×2 (09:32→19:49)
[2025-01-01] MEDS: OMNICEF 300 MG PO ×2 (09:32→19:49)
[2025-01-01] MEDS: MUCINEX 600 MG PO ×2 (09:33→19:48)
[2025-01-01] MEDS: NORVASC 10 MG PO (09:33)
[2025-01-01] MEDS: PROTONIX 40 MG PO (09:33)
--- NOTE | 2025-01-01 09:34 | CM ---
Addendum entered by Shereen Domingo 01/01/25 11:29:
Reviewed chart. Met with pt bedside. let her know about tentative discharge tomorrow.
Pt states that she does NOT take methotrexate any longer. It is currently listed as a discharge medication. Waldo texted this info to Dr. Delarosa
Spoke with Daphnie liaison from [facility]; stated there will be a bed available tomorrow for the patient. She also requested updated clinicals and copies of her Medicare and [employer] insurance cards. Made her aware that the pt is no longer taking
Methotrexate IM
Original Note:
Pt on PO ABXs now. PT continues to rec SNF.[facility] will not accept this patient until she is fever free for 48hrs which will be on 01/02 @ 9:30AM
Plan: DC to [facility] 01-02-25
--- NOTE | 2025-01-01 10:38 | W.PN.HOSP.TC ---
Today's Communication/Plan
-
monitor vitals
see plan
follow fever curve
cw abx per ID
Discussed with returned case inspector, facility can likely accept tomorrow
Discussed with daughter
Assessment / Plan
Assessment / Plan
General: Conversant
HEENT: NormoCephalic, Anicteric, Atraumatic, PERRLA
Respiratory: Clear; No Wheezes, Rales or Rhonchi
Cardiac: S1/S2 and Tachycardia; Peripheral Edema
GI: Soft, Non Tender, Non Distended and Normal Bowel Sounds
Musculoskeletal:No Edema
Neuro: AO x 3, No Motor Deficits, Cranial Nerves Intact
Psych: Calm
Sepsis POA likely 2/2 Acute mucopurulent bronchitis
has chills and rigors
WBC 11.3 with left shift, 98.6, HR 112, 132/63
COVID/influenza negative
now on cefdinir; continue through 01/07
- Sputum culture
Persistent fever, follow fever curve. ID following. fevers now slowing down
Follow blood culture, NGTD
Legionella, strep negative
Chest x-ray did not show opacity which is likely atelectasis. CT chest did not show any signs of pneumonia. Likely atelectasis or scarring.
UA not suggestive of UTI
procal noted
Speech evaluation; VSE noted. ok for regular per speech
abdominal x-ray without any obstruction
per CM facility wont accept until tomorrow 01/02
Denies blurry vision
Hyponatremia
monitor
Mild intermittent headaches
denies blurry vision
now reporting its getting better
CT head without acute abnormality; doesn't want MRI
CXR: Mild patchy parenchymal opacity within the left lower lobe most likely atelectasis however pneumonia is differential.
Lungs appear hypoinflated especially in the left lung mild elevation of left hemidiaphragm
CT chest abdomen pelvis:
Mild dependent atelectasis in the posterior lower lungs. Additional linear densities within the inferior lingula
and inferior left lower lobe, which is most likely linear atelectasis or scarring. No evidence of consolidation to suggest pneumonia.
Cholelithiasis. No CT findings to suggest acute cholecystitis.
Colonic diverticula with no CT evidence for diverticulitis. No evidence for bowel obstruction or free intraperitoneal air.
Mild to moderate gaseous distention of the rectum with no evidence for stercoral colitis.
Bony degenerative changes as described. No evidence for discitis or osteomyelitis.
Lactic acidosis
Resolved
#HTN
Continue valsartan 320 mg daily with hold parameters, felodipine 10 mg daily
#HLD
Continue Crestor 10 mg daily
#DM 2
-Hold Ozempic 2 mg patient was due Sunday
-Accu-Cheks with SSI, check HgbA1 8
Hold metformin
On Toujeo at home, currently on glargine nightly
#RA
Patient reports takes methotrexate 25 mg IM on Saturdays
GERD
Continue Protonix 40 mg daily
DVT prophylaxis
Subcu Lovenox
Full code
Anticipated Discharge: Within 24 hours
Subjective/Interval History
-
Date of Service: January 01, 2025
denies nausea
Objective Data
-
Labs:
Laboratory Results
01/01/25
06:00
WBC Pending
Hgb Pending
Hct Pending
Plt Count Pending
Sodium Pending
Potassium Pending
Chloride Pending
Carbon Dioxide Pending
BUN Pending
Creatinine Pending
Glucose Pending
Calcium Pending
Total Bilirubin Pending
AST Pending
ALT Pending
Alkaline Phosphatase Pending
Vital Signs:
Vital Signs
Temp Pulse Resp BP Pulse Ox
98.2 F 87 18 137/106 96
01/01/25 07:00 01/01/25 09:32 01/01/25 07:00 01/01/25 09:32 01/01/25 07:00
I&O
12/31/24 01/01/25 01/02/25
06:59 06:59 06:59
Intake Total 240 / 240 480 / 480
Output Total 1300 / 1300 900 / 900
Balance -1060 / -1060 -420 / -420
[2025-01-01 11:25] LABS: Glucose - Point of Care 126 mg/dl (70-99)
--- NOTE | 2025-01-01 12:25 | W.PN.ID1 ---
Date of Service
Date of Service: January 01, 2025
Today's Communication
Continue abx.
Assessment / Plan
Fevers
- resolved
Suspected acute mucopurulent bronchitis
Leukocytosis; improved
HTN
DM; uncontrolled. HbA1c = 8
Chronic back pain
HLD
Rheumatoid arthritis
Recommendations:
Prior leukocytosis resolved.
Pneumococcal and Legionella urinary antigens negative.
'Fever' noted yesterday, although was a rectal temperature which is known to be elevated when compared to oral temperatures.
Continue oral doxycycline and cefdinir. Continue with an additional 6 days of antibiotics.
����������������������������������������������������������
Chief Complaint
-: Fever
Subjective / Review of Systems
Review of Systems: No Fever, No Chills and No Cough
Vital Signs / Physical Exam
Vital Signs
Vital Signs
Temp Pulse Resp BP Pulse Ox
98.2 F 87 18 137/106 96
01/01/25 07:00 01/01/25 09:32 01/01/25 07:00 01/01/25 09:32 01/01/25 07:00
Physical Exam
Constitutional: No Acute Distress, Comfortable and Non-toxic
Cardiovascular: S1/S2; Negative S3/S4
Pulmonary: Non Labored; Negative Wheezes, Rales or Rhonchi
Gastrointestinal: Soft, Non Tender and Non Distended
Neurological: Awake and Alert
Psychological: Calm
Objective Data
Lab Data
Estimated Creat Clear 66 ml/min 12/31/24 11:58
Lactic Acid 1.7 mmol/L (0.7-2.0) 12/29/24 09:42
Total Bilirubin 0.6 mg/dl (0.2-1.3) 12/31/24 11:58
AST 19 U/L (14-36) 12/31/24 11:58
ALT 13 U/L (0-35) 12/31/24 11:58
Alkaline Phosphatase 79 U/L (38-126) 12/31/24 11:58
Most recent labs reviewed.
Micro Results:
12/28/24 19:26 Blood Culture - Preliminary
Blood/Venous No Growth in 72 hours- Final report to follow
12/28/24 19:26 Blood Culture - Preliminary
Blood/Venous No Growth in 72 hours- Final report to follow
12/28/24 19:26 Urine Culture - Final
Urine NO GROWTH
12/29/24 16:11 Respiratory Culture - Final
Sputum Gram Stain - Final
12/29/24 18:04 Legionella Urinary Antigen - Final
Urine Negative for Legionella pneumophila Serogroup 1 antigen.
A negative result does not rule out the possiblity of
Legionella infection due to other serogroups or species of
Legionella. Clinical correlation is recommended.
Streptococcus pneumoniae Antigen (M - Final
Negative for Streptococcus pneumoniae antigen.
A negative result does not exclude infection with
Streptococcus pneumoniae. Clinical correlation is
recommended.
12/28/24 16:36 Influenza Types A & B (RIDGE) - Final
Nasal Swab Negative for Influenza A & B, NAAT
Negative results must be combined with clinical observations
and patient history.
Nucleic Acid Amplification test (NAAT)performed on the
[employer] platform.
Imaging:
12/28/2024 CT chest/abdomen/pelvis with contrast: Mild dependent atelectasis in the posterior lower lungs. Additional linear densities within the inferior lingula and inferior left lower lobe, which is most likely linear atelectasis or scarring. No
evidence of consolidation to suggest pneumonia. Cholelithiasis. No CT findings to suggest acute cholecystitis. Colonic diverticula with no CT evidence for diverticulitis. No evidence for bowel obstruction or free intraperitoneal air. Mild to
moderate gaseous distention of the rectum with no evidence for stercoral colitis. Bony degenerative changes as described. No evidence for discitis or osteomyelitis.
12/28/2024 CXR (2 view): lungs appear hypoinflated. Mild elevation of left hemidiaphragm. Mild patchy parenchymal opacity within the left lower lobe, most likely atelectasis. Please see full dictation for additional detail. Film personally viewed.
[2025-01-01 15:00] VITALS: BP 131/81
[2025-01-01 16:27] LABS: Glucose - Point of Care 121 mg/dl (70-99)
[2025-01-01] MEDS: LOVENOX 40 MG SC (17:06)
[2025-01-01] MEDS: TYLENOL 650 MG PO (20:21)
[2025-01-01] MEDS: DULCOLAX 10 MG RECTAL (20:23)
[2025-01-01] MEDS: SENOKOT 8.6 MG PO (20:23)
[2025-01-01] MEDS: COLACE 100 MG PO (20:23)
[2025-01-01 21:18] LABS: Glucose - Point of Care 153 mg/dl (70-99)
[2025-01-01 23:02] VITALS: BP 125/61
[2025-01-01] MEDS: CRESTOR 10 MG PO (23:02)
[2025-01-01] MEDS: LANTUS 0.16 UNITS SC (23:02)
[2025-01-02] MEDS: TYLENOL 650 MG PO (06:11)
[2025-01-02 07:00] VITALS: BP 136/76
[2025-01-02 09:03] LABS: Glucose - Point of Care 130 mg/dl (70-99)
[2025-01-02] MEDS: NOVOLOG FLEXPEN-LOW RESISTANCE SC ×2 (09:11→12:21)
[2025-01-02] MEDS: MUCINEX 600 MG PO (09:12)
[2025-01-02] MEDS: PROTONIX 40 MG PO (09:12)
[2025-01-02] MEDS: COLACE 100 MG PO (09:12)
[2025-01-02] MEDS: OMNICEF 300 MG PO (09:12)
[2025-01-02] MEDS: SENOKOT 8.6 MG PO (09:13)
[2025-01-02] MEDS: NORVASC 10 MG PO (09:13)
[2025-01-02] MEDS: VIBRAMYCIN 100 MG PO (09:13)
[2025-01-02] MEDS: DIOVAN 320 MG PO (09:13)
[2025-01-02 12:18] LABS: Glucose - Point of Care 133 mg/dl (70-99)
--- NOTE | 2025-01-02 13:09 | W.PN.HOSP.TC ---
Today's Communication/Plan
-
dc
Assessment / Plan
Assessment / Plan
79yo F with PMHX of DM, R, HLD, GERD, HTN came with fever and generalized weakness found purulent bronchitis, improving on Abx. As per ID - switched to Cefdinir. Remained not hypoxic on RA. MEdcially stable for D/C. For thyroid nodules recommended
to have outpatient US thyroid as outpatient
A/P:
#Purulent bronchitis with concern for sepsis on admission
cultures neg
On Cefdinir as per ID until 01/07/25
#Ambulatory dysfunction 2/2 malaise 2/2 infection
PT/OT recommended STR
#DM type 2 with neuropathy
Accuchecks, insulin SS, DM diet
#R thyroid nodules
outpatient US thyroid - patient verbalized understanding of the instructions
#Essential HTN
#RA
#HLD
cont home meds
#DJD
PT/OT as outpatient
#b/l renal cysts
no further follow up advised
#Diverticulosis w/o diverticulitits
high fiber diet
#Asymptomatci cholelithiasis
no further mgmt
DVT ppx lovenox
Full code
I have spent at least 38min reviewing chart and providing direct patient care
Anticipated Discharge: Today
Subjective/Interval History
-
Date of Service: January 02, 2025
Objective Data
-
Vital Signs:
Vital Signs
Temp Pulse Resp BP Pulse Ox
98.3 F 76 16 154/73 95
01/02/25 07:00 01/02/25 09:13 01/02/25 07:00 01/02/25 09:13 01/02/25 08:30
I&O
01/01/25 01/02/25 01/03/25
06:59 06:59 06:59
Intake Total 480 / 480 720 / 720 720 / 720
Output Total 900 / 900 1575 / 1575 150 / 150
Balance -420 / -420 -855 / -855 570 / 570
Review of Systems
-
History Source: Patient
All other systems: Reviewed and negative
Physical Exam
-
General: No Apparent Distress
HEENT: Normocephalic
Respiratory: Clear to Auscultation
Musculoskeletal: No Clubbing, No Cyanosis and No Edema
Neuro: Awake, Alert, Oriented and AO x 3
Psych: Calm
--- NOTE | 2025-01-02 13:14 | W.DCSUMMARY ---
Addendum entered and electronically signed by Sanya Gamboa MD 01/02/25 15:36:
as per further communication with CM: patient stopped methotrexate by her PCP
Original Note:
Discharge Summary
Discharge Data
Date of Admission: 12/29/24
Date of Discharge: 01/02/25
-
Pending Results: No
Hospital Course
79yo F with PMHX of DM, R, HLD, GERD, HTN came with fever and generalized weakness found purulent bronchitis, improving on Abx. As per ID - switched to Cefdinir. Remained not hypoxic on RA. MEdcially stable for D/C. For thyroid nodules recommended
to have outpatient US thyroid as outpatient
I have spent at least 38min reviewing chart and providing direct patient care
PAtient was managed for:
#Purulent bronchitis with concern for sepsis on admission
#Ambulatory dysfunction 2/2 malaise 2/2 infection
#DM type 2 with neuropathy
#R thyroid nodules
#Essential HTN
#RA
#HLD
#DJD
#b/l renal cysts
#Diverticulosis w/o diverticulitits
#Asymptomatci cholelithiasis
Discharge Plan
-
Patient Disposition: Group Home/SNF
Discharge Diagnosis/Procedures: Sepsis POA likely 2/2 Acute mucopurulent bronchitis
Lactic acidosis
Condition: Fair
Diet: As tolerated
Activity: As tolerated
Driving Restrictions: As prior to admission
Bathing Restrictions: None
Referrals:
Britany Foster MD [Family Provider, Internal Medicine] - in less than 1 week
Prescriptions:
New
acetaminophen 325 mg Tablet
650 mg PO Q4HPRN PRN (Reason: mild pain/BECERRIL/temp> 100.4F) Qty: 0 0RF
doxycycline hyclate 100 mg Capsule
100 mg PO Q12 Qty: 9 0RF
albuterol sulfate 2.5 mg /3 mL (0.083 %) Solution For Nebulization
2.5 mg inhalation R Q4HPRN PRN (Reason: SOB) Qty: 0 0RF
cefdinir 300 mg Capsule
300 mg PO Q12 Qty: 9 0RF
Continued
rosuvastatin [Crestor] 10 mg Tablet
10 mg PO HS
metformin 500 mg tablet
500 mg PO BID
valsartan 160 mg tablet
320 mg PO DAILY
pantoprazole 40 mg tablet,delayed release (DR/EC)
40 mg PO DAILY
felodipine 10 mg tablet extended release 24 hr
10 mg PO DAILY
methotrexate sodium (PF) 25 mg/mL solution
25 mg IM SA
Ozempic 2 mg/dose (8 mg/3 mL) pen injector
2 mg SC ARNDT
No Action
insulin glargine U-300 conc [Toujeo Max U-300 SoloStar] 300 unit/mL (3 mL) insulin pen
40 unit SC
Discharge Orders:
Discharge Patient (As Directed); Ordered 01/02/25
Ordered By: Sanya Gamboa
Discharge Date and Time
Print Language: BRAZILIAN
--- NOTE | 2025-01-02 14:39 | CM ---
[facility]. Going by wheelchair van. Pt will have her daughter bring [place] from home.
[facility] rehab
report # [phone]
[2025-01-02 15:00] VITALS: BP 148/76
--- NOTE | 2025-01-02 15:29 | PTCARENOTE ---
attempted to call [facility] ([phone]) four separate times to give report without success. plan of care ongoing.
== END 2025-01-02 16:06 | DRG 872 ==
LOC: 4 EAST ACU 09:19
PROVIDERS: Clinical Nurse Specialist Family Health; Internal Medicine; Physician Assistant; Student in an Organized Health Care Education/Training Program; ADMITTING PHYSICIAN Hospitalist; ATTENDING PHYSICIAN Internal Medicine; CONSULT PHYSICIAN Internal Medicine Infectious Disease; EMERGENCY PHYSICIAN Emergency Medicine; FAMILY PHYSICIAN Internal Medicine
DX: A41.9 Sepsis, unspecified organism (principal); E87.20 Acidosis, unspecified; J20.9 Acute bronchitis, unspecified; J41.1 Mucopurulent chronic bronchitis; E11.40 Type 2 diabetes mellitus with diabetic neuropathy, unspecified; E04.2 Nontoxic multinodular goiter; I10 Essential (primary) hypertension; M06.9 Rheumatoid arthritis, unspecified; E78.5 Hyperlipidemia, unspecified; N28.1 Cyst of kidney, acquired; K57.30 Diverticulosis of large intestine without perforation or abscess without bleeding; K80.20 Calculus of gallbladder without cholecystitis without obstruction; K21.9 Gastro-esophageal reflux disease without esophagitis; G89.29 Other chronic pain; W19.XXXA Unspecified fall, initial encounter; Z79.4 Long term (current) use of insulin; Z79.84 Long term (current) use of oral hypoglycemic drugs; Z11.52 Encounter for screening for COVID-19
CPT/HCPCS: 70450; 71046; 71260; 74022; 74177; 74230; 80053; 81003; 81015; 82962; 83036; 83605; 84145; 85025; 85027; 87040; 87070; 87086; 87205; 87449; 87502; 87811; 87899; 92610; 92611; 93005; 96361; 96374; 97110; 97116; 97163; 97167; 99285; Q9967